=== PATIENT | female | born 1960 | race Caucasian/White ===

== ENCOUNTER 2022-03-18 07:59 | Day surgery (SDC) | payer OTHER ==
--- NOTE | 2022-03-17 08:50 | P.HPOR ---
History of Present Illness H&P Date: 03/17/22 Chief Complaint: Left small finger swan neck deformity Subjective: This is a 61 year old female that presents today for initial evaluation regarding a left small finger injury that occurred on 01/10/22 when she tripped over a mat a fell at home. She was found to have a left small finger PIPJ dorsal dislocation which was subsequently reduced and splinted. Since the injury she has noticed a deformity of the finger and inability to bend the digit. She sta kim it is not functional in it's current state. She has tried splinting and therapy but has not noticed much of a difference in her symptoms. She works at [employer]. She denies any paresthesias. Physical Examination: LUE: AIN/PIN/Radial/Ulnar/Median motor intact. Radial/Ulnar/Median SILT. 2+/4 Radial/Ulnar pulses palpated. 5/5 APB, 5/5 FDI. Negative Finkelsteins, negative CMC grind, negative Durkan's compression. Left small finger Bradley neck deformity. Able to correct to neutral extension. PIP passive flexion only to 10 degrees. Imaging: X-Rays of the left small finger demonstrate no acute fracture or dislocation. No arthritic changes at PIP joint present. Hyperextension deformity appreciated at PIP joint with DIP joint held in flexion. X-Rays taken in ED at time of injury on 01/10/22 demonstrate a left small finger dorsal PIP joint dislocation that was subsequently reduced. Impression: 1.) Left small finger swan neck deformity s/p left small finger dorsal PIP dislocation 2.) Left small finger PIP extension contracture Plan: Diagnosis and treatment options were discussed with the patient including splinting, which she has already tried, continued observation, and surgical options. Details of surgery which would include left small finger PIP joint volar plate advancement with central slip tenotomy were discussed and the patient wished to proceed with surgical intervention due to the finger not being functional anymore. Risks and benefits of surgery including bleeding, infection, damage to surrounding tissue, need for further surgery, stiffness, residual numbness were discussed and the patient wished to go forward with surgery. I anticipate 2 weeks off from her work, she may resume right handed work only at 2 weeks with likely all restrictions lifted at 6 weeks. -Davin Simpson DO Orthopedic Hand/Upper Extremity Surgeon Medications and Allergies Allergies Allergy/AdvReac Type Severity Reaction Status Date / Time Unable to Assess Allergy Verified 03/13/22 15:42 Physical Examination Osteopathic Statement: *. No significant issues noted on an osteopathic structural exam other than those noted in the History and Physical/Consult.
[2022-03-17 10:03] VITALS: BMI 36.3
[~2022-03-18 07:59] MED LIST: LACTATED RINGERS 1,000 ML IV SCH; ONDANSETRON 4 MG/2 ML VIAL IVP PRN; fentaNYL (PF) 50 MCG/ML 2 ML AMP IV PRN
[2022-03-18] MEDS ORDERED: LACTATED RINGERS 1,000 ML IV ONE (08:33)
[2022-03-18] MEDS ORDERED: KETAMINE 10 MG/ML 20 ML VIAL ONE (09:08)
[2022-03-18] MEDS ORDERED: PROPOFOL 10 MG/ML 20 ML VIAL IV ONE (09:08)
[2022-03-18] MEDS ORDERED: fentaNYL (PF) 50 MCG/ML 2 ML AMP ONE (09:08)
[2022-03-18] MEDS ORDERED: MIDAZOLAM 2 MG/2 ML VIAL ONE (09:08)
[2022-03-18] MEDS ORDERED: LIDOCAINE 1% INJ 10MG/ML (20 ML MDV) SQ ONE (09:15)
[2022-03-18] MEDS ORDERED: BUPIVACAINE (PF) 0.5% 30 ML VIAL SQ ONE (09:15)
[2022-03-18 10:48] VITALS: TEMP 98
[2022-03-18] MEDS ORDERED: HYDROcodone/APAP 5-325MG 1 EACH TAB PO ONE (12:04)
[2022-03-18 12:22] VITALS: RESP 14
[2022-03-18 12:37] VITALS: BP 138/82; PULSE 79
--- NOTE | 2022-03-18 18:10 | P.OP ---
Date of Procedure: 03/18/22 Preoperative Diagnosis: 1.) Left small finger post traumatic swan neck deformity. 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 Postoperative Diagnosis: 1.) Left small finger post traumatic swan neck deformity. 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 Procedure(s) Performed: 1.) Left small finger PIP joint contracture release with capsulotomy for contracture (20113) 2.) Left small finger extensor tenolysis, dorsum of finger (84036) 3.) Left small finger FDS tenodesis for PIP joint stabilization ([id number]) Anesthesia: MAC Surgeon: Davin Simpson Docking Pilot #1: Steven Boogie Estimated Blood Loss (ml): 5 Pathology: none sent Condition: stable Disposition: PACU Description of Procedure: This is a 61 year old female who sustained a left small finger dorsal PIP dislocation on 01/10/22 which was close reduced and splinted. She subsequently developed a fixed swan neck deformity in the following months after her injury. She presented to me several months after treatment with another surgeon and after having tried splinting and therapy with no relief and a persistent locked swan neck deformity. She presents today for swan neck deformity correction surgery after having failed conservative treatment. Risks and benefits of surgery were discussed with the patient including bleeding, damage to surrounding tissue, infection, need for further surgery, recurrence, stiffness, as well as risks of anesthesia including pulmonary embolism and even and the patient wished to proceed with surgical intervention. The patient was seen in the pre-operative area by myself. Consent and H&P were completed and updated. The correct extremity was marked in the pre-operative area by myself and all other questions were answered. Operative Narrative: The patient was brought to the operating room by the department of anesthesia. They remained on the portable stretcher and a rolling hand table was brought to the side of the operative extremity. Pre-operative time out was performed indicating the correct patient, procedure and laterality. All in the room agreed. Pre-operative antibiotics were given prior to skin incision. The patient was then drifted off to sleep by the department of anesthesia. Digital block was performed with 7cc's of 0.5% Lidocaine and 1% lidocaine in a 50:50 mixture. A nonsterile tourniquet was then applied to the operative extremity and the left upper extremity was then prepped and draped in normal sterile fashion. The operative extremity was the exsanguinated with an esmarch bandage and the tourniquet was inflated to 250mmHg. Attention was first given to PIP joint mobilization of the left small finger. Closed PIP joint manipulation was performed and a 40 degrees of flexion was now able to be obtained compared to -10 degrees previously. Longitudinal/curvilinear incision was made over the PIP joint dorsally. Blunt dissection through subcutaneous tissues was performed. The entire extensor mechanism was very scarred down to the dorsal IP joint capsule and the lateral bands were found to have migrated proximally. Tenolysis was performed to separate the proximal portion of the central slip that was scarred down and 15 blade scalpel was utilized to separate the longitudinal bands from their adhesions and the lateral bands were then mobilized volarly. Dorsal PIP joint capsule was then incised and capsulotomy was performed to aid in PIP flexion. The finger was then manipulated once more and 90 degrees of passive flexion was able to be obtained however hyperextension of the PIP joint was still present. Attention was then drawn to the volar aspect of the small finger. Shahnaz type incision was made with 15 blade scalpel overlying the PIP joint. Blunt dissection was taken down to unveil the A2, C1, A3, C2 and A4 pulleys. Retraction was utilized to protect the radial and ulnar neurovascular bundles. The flexor tendon sheath was entered by longitudinally incising the C1 and A3 pulleys taking care to preserve the A2/A4 pulleys. The volar plate appeared to be very scarred and thin and not viable for repair/advancement therefore decision was made to go forward with FDS tenodesis. The ulnar slip of the FDS tendon was retracted fully through the opening of the flexor tendon sheath then incised as proximally as possible leaving a free distally based tendon with 5cm of length. Next, a transverse incision was made in the mid-substance of the A2 heydi, ensuring that sufficient tissue is left in the distal portion of the A2 heydi to allow for a strong anchor. The FDS slip was then passed palmarward through the A2 heydi and sutured back to itself with 4-0 ethibond suture in figure of 8 fashion after appropriate tension was determined leaving the PIP join in 15-20 degrees of flexion. The C1 and A3 pulleys were then repaired with 4-0 monocryl suture. The finger was flexed and gently extended and smooth gliding of the flexor tendon was appreciated. The wound was then irrigated and skin closure was performed with 4-0 nylon suture. Sterile dressing with adaptic, bacitracin, 4x4s and a dorsal extension blocking splint was applied. Tourniquet was let down and the digit had immediate perfusion. The patient was then woken by the department of anesthesia and transferred to PACU in stable condition. Steven FOSTER was present for the case to assist in tendon tensioning and protection of vital neurovascular structures. Davin Simpson D.O. Orthopedic Hand/Upper Extremity Surgeon
== END 2022-03-18 13:04 | disposition home or self-care (01) ==
LOC: OR 07:59
PROVIDERS: ATTEND Orthopaedic Surgery Hand Surgery
DX: M20.032 Swan-neck deformity of left finger(s) (principal); M24.542 Contracture, left hand; S63.28 Dislocation of proximal interphalangeal joint of finger; X58.XXXS Exposure to other specified factors, sequela; J45.909 Unspecified asthma, uncomplicated; Z91.09 Other allergy status, other than to drugs and biological substances; Z79.899 Other long term (current) drug therapy; Z87.891 Personal history of nicotine dependence; Z80.9 Family history of malignant neoplasm, unspecified
CPT/HCPCS: 26525; 26445; 26471; J2250; J0690; J2405; J2001; J3010; J2704

== ENCOUNTER 2022-04-21 05:41 | Inpatient (IN) | payer OTHER ==
[2022-04-17 10:34] VITALS: BMI 36.4
[~2022-04-21 05:41] MED LIST changes: +ACETAMINOPHEN TAB 500 MG TAB PO PRN; +GABAPENTIN 300 MG CAP PO PRN; -LACTATED RINGERS 1,000 ML IV SCH; +MELOXICAM 7.5 MG TAB PO PRN; -ONDANSETRON 4 MG/2 ML VIAL IVP PRN; +TRANEXAMIC ACID IN NACL,ISO-OS 1,000 MG in SALINE 1 100ML.BAG IVPB PRN; -fentaNYL (PF) 50 MCG/ML 2 ML AMP IV PRN
[2022-04-21] MEDS ORDERED: DEXAMETHASONE SOD PHOSPHATE 4 MG/ML 1 ML VIAL IV ONE (05:46)
[2022-04-21] MEDS ORDERED: ONDANSETRON 4 MG/2 ML VIAL IVP ONE (05:46)
[2022-04-21] MEDS: LACTATED RINGERS 1,000 ML IV SCH ×2 (06:23→18:32)
--- NOTE | 2022-04-21 06:57 | P.HPOR ---
History of Present Illness H&P Date: 04/13/22 Chief Complaint: LE weakness, LBP, debility [facility] History and Physical Date of :[birth year] R14Age: 61 year Height: 5'8" Weight: 220 lbs BMI: 33.45 kg/m2 Occupation: [email or web address] VAS: 5 CHIEF COMPLAINT: Low back pain DOI: None DOS: Prior lumbar fusions in 2006, 2017 and 2018. HISTORY: Xrays x-rays and CT myelogram completed Trauma or injury No Work-Related No Pain description aching, sharp. Location diffuse Activity Modification Hand Dominance right TREATMENTS COMPLETED: 6 weeks of PT completed? Month and Year of last PT date? 2020 Yes How many sessions? 12 Did it help? No Physician directed home exercise completed? yes , without relief of her symptoms. Medications yes List: TramadoL, Flexeril, Naproxen without relief of her symptoms. Has trialed Mobic and Lyrica previously without relief but is no longer taking. Alternative interventions Chiropractic: No Massage therapy: No R.I.C.E: yes , daily without relief. Brace: No Injections No RFA: No SUBJECTIVE: Ms. Bui returns to the office for a pre-operative recheck of their low back pain and planned [id number] decompression and fusion. Since the time of the last appointment the patient reports no significant changes to her symptom, continuing to complain of severe low back pain radiating into the bilateral lower extremities. Overall the patient has seen a progressive increase in symptoms since their onset. Ms. Bui symptoms are exacerbated with most daily activities, due to this they notes that it is increasingly difficult for Ms. Bui to complete many of their daily tasks. Patient is having severe sleep disturbances as well due to their ongoing pain and associated symptoms. Regarding treatments, the patient has previously trialed all abovmentiioned treatment modalities without any relief. Patient denies trialing any other modalities at this time. Otherwise the patient denies any f/c/sob/cp, no incision concerns, no bladder or bowel retention/incontinence, no perineal numbness/tingling, and ambulates independently. HISTORY: Patient last presented on 02/23/2022 for follow-up on her back pain and her CT myelogram. since her last visit she has continued to have issues ambulating as well as with back pain and leg pain. She complains mostly of leg discomfort leg numbness tingling as well as pain. She can only walk very short distance before she has to take a break due to cramping in her lower extremities. She denies any fevers chills shortness of breath or chest patient has a new symptoms of bowel or bladder issue she denies any perineal numbness or tingling. She states continued issues with activities of daily living secondary to her debility and her back issues. Previously Ms. Bui presented to the office on 11/27/2021 for an evaluation of her low back. She reports symptoms ongoing for many years that have progressively worsened over the last 3 months with no known injury or trauma to indicate an exact onset. With this she does report that she has had 3 prior lumbar surgeries in 2006, 2018, and. She notes that she find temporary relief of her symptoms but her pain has always returned following the surgeries. Regarding her symptoms, the patient reports pain radiating across the low back into the bilateral lower extremities. With the pain she does also report numbness and tingling down the lower extremities into the bilateral feet as well. Overall her symptoms are constant but exacerbated with prolonged standing and ambulation which is increasingly making completion of her daily tasks difficult. Additionally she notes frequent sleep disturbances due to her pain as well. As for treatments, the patient reports that since her surgery in 2018 she did trial a round of PT as well as greater than 3 months of a physician directed HEP both without any relief. Additionally she notes that she is currently taking TramadoL, Flexeril, and NAproxen all without relief of her symptoms. Patient has trialed Mobic and Lyrica previously without any relief of her symptoms. Otherwise she denies any bladder or bowel retention/incontinence, no perineal numbness/tingling, and ambulates independently. The patients' past social, medical, family, surgical history, as well as review of systems, have been reviewed. Please refer to the Neurosurgery History and Physical form that has been scanned in to our electronic medical record system. 16 points review of systems completed and as stated in HPI, all other systems reviewed are negative. Social History: Reviewed, see appropriate section of the chart for details. P3 Social History: Smoking: none P3 Alcohol: currently drinks alcohol P3 Family History: Reviewed, see appropriate section of the chart for details. P2 Past Medical History: Reviewed, see appropriate section of the chart for details. P1 Current Medications: Rx: cyclobenzaprine 5 mg tablet Ref: 0 Rx: naproxen 500 mg tablet Ref: 0 Rx: traMADol 50 mg tablet Ref: 0 PHYSICAL EXAMINATION:exam repeated changes noted General: Awake, alert, appropriate for age, in no acute distress. HEENT: No unusual neck masses around region of lateral neck triangle, thyroid, supraclavicular groove Heart: Regular rate and rhythm, normal S1, S2 and no murmur/gallop. Lungs: Clear to auscultation bilaterally with no use of accessory muscles. Extremities: Skin warm and dry without acute lesions, coloration, temperature, skin intact, no tenderness or erythema Integument: Hairy patches: ABSENT Dorsal skin dimples: ABSENT Cafe au lait spots: ABSENT Palpation: Please see Pain drawing on Intake sheet for further detail. Midline spinal tenderness: No E6 Cervical Tenderness: No E6 Paralumbar tenderness: No E6 Parathoracic tenderness: No E6 Buttocks tenderness: No E6 Sacroilliac Tenderness: No POSTURAL and MUSCULO-SKELETAL EVALUATION: Coronal Balance: NEUTRAL Recumbent testing: Patient is able to lay flat on back Sagittal Balance: NEUTRAL Shoulder Profile: LEVEL Pelvic Girdle: LEVEL Neck ROM: UNRESTRICTED Lumbar ROM: RESTRICTED Shoulder ROM: Symmetrical Hip ROM: Symmetrical Knee ROM: Symmetrical Hands: Normal appearance, symmetrical Feet: Normal appearance, Symmetrical VASCULAR STATUS : LEFT RIGHT Wrist Pulses INTACT INTACT Pedal Pulses (Dors. pedis & post.tibialis) INTACT INTACT Color NORMAL NORMAL Edema Absent Absent NEUROLOGIC EXAMINATION: Mental Status:Awake and alert, fully oriented, with normal attention, concentration and memory, and fluent, appropriate speech. Cranial Nerves: I: Olfactory not tested. II: Visual acuity normal, no visual field deficit noted with confrontation. III,IV: Normal pupillary reflexes & intact extraocular movements without nystagmus. V,: Intact symmetrical facial sensation. VII: Intact symmetrical facial motor movement VIII: Hearing intact. IX,X: Intact gag, swallow, & normal voice. XI: Sternocleidomastoid, trapezius function intact. XII: Tongue midline with normal movements. L'hermitte's Sign: Negative / absent Spurling'Sign: Absent bilaterally. Cubital percussion test: Absent bilaterally. Hannah-Tinel sign - Carpal region: Absent bilaterally. Straight Leg Raising: Absent bilaterally. Crossed straight leg raise: negative O8 MOTOR EXAM (0-5/5, N/T) UPPER EXTREMITY Shoulder Abduction Biceps Triceps Wrist Extension Hand [employer] Super[employer] Right 5/5 5/5 5/5 5/5 5/5 5/5 Left 5/5 5/5 5/5 5/5 5/5 5/5 LOWER EXTREMITY Hip Flexion Knee Extension Knee Flexion DF PF EHL FHL Right 4/5 4/5 4/5 4/5 4/5 4/5 5/5 Left 4/5 4/5 4/5 4/5 4/5 4/5 5/5 REFLEXES(0-4/2, NT)Upper ExtremityLower Extremity Right 2 2 Left 2 2 Pathological Reflexes RIGHT LEFT Hannah's Absent Absent Clonus Absent Absent Babinski Absent Absent # Indicates mechanical impairment Muscle appearance: Symmetrical, without signs of atrophy or dystrophy. Sensory system (0-4, N/T) Test type RU JAHAIRA RL LL Joint-Position 2 2 2 2 Vibration 2 2 2 2 Pain & LT sense 2 2 2 2 Dermatomal Deficit: None None L3 4L5-S1 L1 toL5-S1 Gait and Functional Evaluation: Ambulatory aids: with assistance of a cane Romberg's test: Intact bilaterally Toe heel walk / heel-toe walk intact while maintaining satisfactory balance? No Squatting/straightening w/o assistance to a min of 60 degree knee flexion? No Single leg stance: intact Trendelenburg sign negative bilaterally Hand and finger dexterity intact bilaterally? yes Disdiadochokinesis examination negative bilaterally? yes RADIOGRAPHIC STUDIES: XRay taken on 11/27/21 of Lumbar Spine and Pelvis: images reviewed demonstrate postsurgical changes from L2 to L5 with multiple different constructs. From L2 to L4 there is pedicle screw wayne construct with interbody fusion at L3-L4 which appears to be holding its position. At L4-L5 there is interbody fusion however rods do not extend to the L5 screws there are screws in L5 which appeared to be left in place from previous surgery likely due to their appearance as older in nature and the hardware as not compatible with new or hardware. There is proximal junctional failure at L1-L2 with severe spondylosis as well as collapse and segmental kyphosis. There is distal junctional failure at L5-S1 with severe spondylosis segmental kyphosis and collapse. There is severe facet arthrosis at these levels as well. Global lumbar lordosis is fairly well maintained coronal balance shows minor levoscoliosis around these levels no fracture or dislocation is noted otherwise. AP pelvis demonstrates congruent level pelvis no fracture CT myelogram from [place]: this is reviewed with the pt and demonstrates severe ASD at L1-3 and L5-S1. There is disc dessication as well as height loss. There is severe retrolisthesis with abnormal lordosis at L2-3 and L3-4 likely secondary to the ASD. There is severe stenosis L1-2, L2-3 and L3,4 as well as moderate central stenosis L5-S1. There is flattening of the normal lodosis due to these findings as well. LL is around 25 with PI around 56 mismatch. No fractures noted. No lesions noted. Severe spondylosis through these regions. REasonable fusion without hardware fialure from previous surgeries. IMPRESSION: It was my pleasure to have seen and examined April. I reviewed the patient's clinical syndrome, physical findings, and imaging studies during the appointment today. It is my impression that the patient has a diagnosis of. 1. 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 Neurogenic claudication 3. LE weakness 4. s/p multiple spine surgeries. I outlined the natural course history without intervention and various interventional options. PLAN: Based on my findings I suggest the following course of action: -Due to the nature of her sx as well as her severe imaging findings I do recommend surgical intervention in the form of a revision decompression and fusion from Thoracic 10 to pelvis. This is due to the levels of issues that she has being at a transitional zone, the severe stenosis she has as well as the ASD above and below her old fusions. -We discussed different options and at this point she cannot perform her ADLs appropriately and conservative measures have failed to improve her sx including PT, HEP, medications, injections. She is ready for surgery. Spine Surgery Risk Review Ms. Bui is presenting for evaluation of low back pain. It was my pleasure to have seen and examined Ms. Bui. In our visit today we have had a chance to go over subjective complaints, physical examination findings and treatments including the natural course history without intervention and various interventional options. The patients imaging demonstrates: XRay taken on 11/27/21 of Lumbar Spine and Pelvis: images reviewed demonstrate postsurgical changes from L2 to L5 with multiple different constructs. From L2 to L4 there is pedicle screw wayne construct with interbody fusion at L3-L4 which appears to be holding its position. At L4-L5 there is interbody fusion however rods do not extend to the L5 screws there are screws in L5 which appeared to be left in place from previous surgery likely due to their appearance as older in nature and the hardware as not compatible with new or hardware. There is proximal junctional failure at L1-L2 with severe spondylosis as well as collapse and segmental kyphosis. There is distal junctional failure at L5-S1 with severe spondylosis segmental kyphosis and collapse. There is severe facet arthrosis at these levels as well. Global lumbar lordosis is fairly well maintained coronal balance shows minor levoscoliosis around these levels no fracture or dislocation is noted otherwise. AP pelvis demonstrates congruent level pelvis no fracture CT myelogram from [place]: this is reviewed with the pt and demonstrates severe ASD at L1-3 and L5-S1. There is disc dessication as well as height loss. There is severe retrolisthesis with abnormal lordosis at L2-3 and L3-4 likely secondary to the ASD. There is severe stenosis L1-2, L2-3 and L3,4 as well as moderate central stenosis L5-S1. There is flattening of the normal lodosis due to these findings as well. LL is around 25 with PI around 56 mismatch. No fractures noted. No lesions noted. Severe spondylosis through these regions. REasonable fusion without hardware fialure from previous surgeries. On physical exam, Ms. Bui demonstrates signifcantly restricted lumbar range of motion with bilateral lower extremity radiculopathy and weakness. Furthermore the patient does also demonstrate bilateral L3-L4, L5-S1 paresthesias. I have explained to the patient that as their condition progresses it will cause further neurological deficits and eventual paralysis. Based on the patients imaging, physical exam, and the rapid progression and disabling nature of their symptoms, at this time I recommend surgery in the form or a: Y45-Dobenh Decompression and Fusion. I discussed the risk and benefits of this procedure at length with Ms. Bui. The patient agreed to considered pursuing the procedure abovementioned. Prior to surgery, she should follow up with her PCP (Cardio, ID, IM etc) for clearance. Questions were invited and answered, and the patient wishes to proceed as outlined below. Currently, I am recommendin.[id number] Decompression and Fusion 2.Follow up with PCP for surgical clearance 3.Review of surgical risks and benefits as well as an educational packet on the proposed surgical procedure. Risks: All surgical procedures come with inherent risks, including those related to positioning, anesthesia, intraoperative findings, and postoperative complications. It is important to understand that surgery does not come with any guarantee of a successful outcome as complications and adverse events are always possible. The patient was given a handout in office today discussing the surgical procedure and risks associated with the intervention, both of which were discussed with the patient. These risks include but are not limited to the following: * Experiencing same, different or even worse symptoms in back, neck, arms, or legs compared to before surgery. Requiring further surgery or other forms of treatment presently or at some time in the future at same or other levels of the intended spine surgery. On an extreme but fortunately relatively rare basis severe complication such as blindness, stroke, heart attack, temporary and/or permanent nerve injury, paralysis, coma, or may occur, sometimes without known explanation. Surgical complications may include but are not limited to risk of infection, fluid accumulation in the surgical dissection site, including a seroma or hematoma, that requires additional surgery, wound drainage, bleeding, new numbness or weakness, vision changes/loss, spinal fluid leakage, non-healing and/or infected incision, headaches, difficulty or inability to swallow, hoarseness, hemopneumothorax, pneumothorax, impotence, retrograde ejaculation, vaginal dryness; injury to nerves, spinal cord, blood vessels, lymphatics or other vital organs (i.e., bowel injury, injury to the great vessels); heterotopic bone formation; complications related to the hardware such as screws, rods, cages including misplaced hardware, device failure, instrumentation at the wrong spine level, hardware fracture/breakage, or hardware loosening; vertebral failure of the spinal column above or below the newly placed hardware; retained surgical instrumentations or devices and the need for further surgery. * Medical risks of the planned spine surgery include but are not limited to generalized Infections to the whole body or local areas outside of the surgical site (sepsis), heart attack, bleeding, anaphylaxis, meningitis, seizure, epilepsy, hearing loss, burn casillas, laceration of the head or other areas of the body, bruising, hypersensitivity of the skin, bladder over distension; allergic reaction; shoulder injury related to positioning; fat, blood and air clots to other areas of the body like heart, lungs, brain; failu re of internal organs such as lungs, kidneys, liver and excessive bleeding. If blood transfusions are necessary, note that transfusions may cause intolerance reactions such as anaphylaxis or other complex reactions. Despite best efforts, the results of spine surgery might not heal in terms of bone, soft tissues such as skin, fascia, ligaments, and joints. Additionally, in order to achieve best possible results, spine surgery may be carried out beyond the initially planned levels and involve decompression, fusion including insertion of hardware at levels other than the original intended area of surgical interest change some portions of the procedure in order to ensure the best possible outcomes. With spine surgery and spinal fusion, there are different off label uses of instrumentation (devices, implants and hardware) as well as biological substances (bone morphogenic proteins, demineralized bone matrix) as well as using extra bone from allograft sources (i.e. cadaver bone) or autograft (iliac crest bone, ribs, or the spine itself). The patient has been given information about these practices and their inherent risks and benefits. [facility] is an educational center that serves as a training facility for neurosurgical and orthopedic [employer] and Nursing students. Physician assistants are medically trained surgical providers who function in the outpatient, inpatient, and operating room setting under the direct supervision of the attending surgeon. [facility] has multiple operating rooms with single and overlapping rooms running daily. They currently function under the required guidelines as produced by the [facility] Finance Committee with regards to the overlapping rooms and will continue to comply with changes to this policy as they occur. The requirements include and are complied with as follows: (1) the critical portions of the overlapping rooms will not occur at the same time, (2) the attending physician will be physically present during the critical portions of the procedure and immediately available during the entire case, and (3) a back-up attending is designated should the primary attending not be immediately available. The patient has had a chance to review all the listed information, has been given print outs detailing this information, and has had all his/her questions answered to their satisfaction. It was my pleasure to have seen and examined Ms. Bui. In our visit today we have had a chance to go over my understanding of our patient's current condition, the natural course history without intervention and various interv entional options. Questions were invited and answered, and the patient wishes to proceed as outlined above. I have seen and examined the patient for 25 minutes and we have spent more than 50% of the time in repeat and detailed counseling about the patient's condition, its natural course history with out and as much as can be predicted with surgery and re-review of various surgical treatment options. In conclusion, Ms. Bui requested we proceed with the above suggested surgery and are willing to accept risks and limitations of the suggested surgery as nature of the disease process and our best attempts at treatment for the condition. Thank you again for allowing us to be part of your patient's care. Please don't hesitate to contact me if you have any further questions. Signed and authenticated by: Bertin [facility]im[facility] [address] [address] Past Medical History Past Medical History: Asthma, GERD/Reflux, Osteoarthritis (OA) Additional Past Medical History / Comment(s): childhood asthma, hx pancreatitis, sphinal stenosis, History of Any Multi-Drug Resistant Organisms: None Reported Past Surgical History: Cholecystectomy, Hysterectomy, Joint Replacement, Orthopedic Surgery, Tonsillectomy Additional Past Surgical History / Comment(s): left knee replacement, left knee arthroscopy, Past Anesthesia/Blood Transfusion Reactions: No Reported Reaction Smoking Status: Former smoker - Past Family History Father Family Medical History: Cancer Additional Family Medical History / Comment(s): NOT 100% SURE IF DAD HAD CANCER Sister(s) Family Medical History: Cancer Mother Family Medical History: Pulmonary Embolus Medications and Allergies Home Medications Medication Instructions Recorded Confirmed Type Cyclobenzaprine [Flexeril] 5 mg PO TID 03/17/22 04/21/22 History Naproxen Sodium [Naproxen Sodium 500 mg PO BID PRN 03/17/22 04/21/22 History ER] traMADol HCL 50 mg PO BID PRN 03/17/22 04/21/22 History Omeprazole Magnesium [PriLOSEC OTC] 20 mg PO DAILY PRN 04/17/22 04/21/22 History HYDROcodone/APAP 5-325MG [[place] 5 PO PRN 04/21/22 History 5-325] Allergies Allergy/AdvReac Type Severity Reaction Status Date / Time mold Allergy sneezing Verified 04/21/22 06:14 Physical Examination Osteopathic Statement: *. No significant issues noted on an osteopathic structural exam other than those noted in the History and Physical/Consult.
--- NOTE | 2022-04-21 06:58 | P.PN ---
Progress Note - Text Progress Note Date: 04/21/22 History and Physical UPDATE I have seen and examined the patient and reviewed the history and physical. There appear to be no significant changes in the patient's current medical status as outlined in the current History and Physical.
[2022-04-21] MEDS ORDERED: fentaNYL (PF) 50 MCG/ML 2 ML AMP ONE (07:00)
[2022-04-21] MEDS ORDERED: PROPOFOL 10 MG/ML 20 ML VIAL IV ONE (07:00)
[2022-04-21] MEDS ORDERED: ePHEDrine 50 MG/ML 1 ML VIAL ONE (07:00)
[2022-04-21] MEDS ORDERED: TRANEXAMIC ACID IN NACL,ISO-OS 1,000 MG/100 ML BAG ONE (07:00)
[2022-04-21] MEDS ORDERED: HYDROmorphone (PF) 1 MG/ML ONE (07:00)
[2022-04-21] MEDS ORDERED: SUCCINYLCHOLINE CHLORIDE 200 MG/10 ML VIAL IV ONE (07:00)
[2022-04-21] MEDS ORDERED: KETAMINE 10 MG/ML 20 ML VIAL ONE (07:00)
[2022-04-21] MEDS ORDERED: ALBUMIN HUMAN 5% (25gm) 500 ML VIAL IVPB ONE (07:00)
[2022-04-21] MEDS ORDERED: PHENYLEPHRINE-0.9% NACL SYG 1,000 MCG/10 ML SYRINGE ONE (07:00)
[2022-04-21] MEDS ORDERED: ROCURONIUM 10 MG/ML (5 ML VIAL) IV ONE (07:00)
[2022-04-21] MEDS ORDERED: ceFAZolin 1,000 MG VIAL ONE (07:00)
[2022-04-21] MEDS ORDERED: LIDOCAINE 2% INJ 20 MG/ML (2 ML VIAL) ONE (07:00)
[2022-04-21] MEDS ORDERED: SODIUM CHLORIDE 0.9% 100 ML BAG ONE (07:00)
[2022-04-21] MEDS ORDERED: MIDAZOLAM 2 MG/2 ML VIAL IVP ONE (07:03)
--- NOTE | 2022-04-21 08:35 | P.ANPRN ---
Procedure Note - Anesthesia - Invasive Line Right Central Line Time Out Performed: Yes ([id number]) Date of Procedure: 04/21/22 Time of Procedure: 07:09 Location of Patient: PreOp Preparation: Sterile Prep, Sterile Dressing Ultrasound Used: Yes Purpose - Visualization and Identification of Vasculature: Yes Needle Guage: 18g angio Image Stored and Saved: Yes Narrative: Central line placement per sterile protocol utilized. +local +angio +cvp +jwire +uneventful dilation and introduction right IJ TLC
[2022-04-21] MEDS ORDERED: THROMBIN (BOVINE) 5,000 UNIT VIAL TOPICAL ONE (08:54)
[2022-04-21] MEDS ORDERED: GELATIN SPONGE,ABSORB (LARGE) 1 EACH SPONGE TOPICAL ONE (08:54)
[2022-04-21] MEDS ORDERED: TRANEXAMIC ACID IN NACL,ISO-OS 1,000 MG in SALINE 1 100ML.BAG IVPB ONE (09:15)
[2022-04-21] MEDS ORDERED: LACTATED RINGERS 1,000 ML IV ONE ×6 (09:29→15:51)
[2022-04-21] MEDS ORDERED: CYCLOBENZAPRINE 5 MG TAB PO PRN (14:40)
[2022-04-21] MEDS ORDERED: HYDROcodone/APAP 5-325MG 1 EACH TAB PO PRN (14:40)
[2022-04-21] MEDS ORDERED: SENNOSIDES-DOCUSATE SODIUM 1 EACH TAB PO PRN (14:40)
[2022-04-21] MEDS ORDERED: VANCOMYCIN 1,000 MG VIAL MISCELLANE ONE (15:00)
[2022-04-21] MEDS: HYDROmorphone 0.5 MG/0.5 ML SYRINGE IVP PRN ×3 (16:50→18:37)
--- NOTE | 2022-04-21 16:55 | XR ---
EXAMINATION TYPE: XR chest 1V confirm line [facility] DATE OF EXAM: 04/21/2022 COMPARISON: NONE HISTORY: Line placed TECHNIQUE: Single view FINDINGS: Heart and mediastinum are within normal limits. There is right jugular catheter with tip in the superior vena cava. There is thoracolumbar posterior fusion surgery. There are skin eneida. Mattie phragm is normal. No pneumothorax. IMPRESSION: No active cardiopulmonary disease.
--- NOTE | 2022-04-21 17:10 | XR ---
EXAMINATION TYPE: XR lumbar spine 2 or 3V, FL guidance operating room DATE OF EXAM: 04/21/2022 Comparison: None Clinical History: 61-year-old female [id number] Revision Findings: Multiple intraoperative fluoroscopic images during revision of fusion spanning T10 through the pelvis . FLUOROSCOPY Fluoroscopy time of 1 minute 40 seconds was used during [id number] revision. Multiple image/s docume nt/s the procedure. Impression: Intraoperative fluoroscopy as above.
[2022-04-21 18:12] LABS: Glucose,Whole Blood 199 mg/dL (70-110)
[2022-04-21] MEDS: ACETAMINOPHEN TAB 325 MG TAB PO SCH ×2 (20:19→23:50)
[2022-04-21] MEDS: HYDROmorphone 1 MG/ML 1 ML SYRINGE IVP PRN (21:05)
[2022-04-22] MEDS: HYDROmorphone 1 MG/ML 1 ML SYRINGE IVP PRN ×2 (02:23→21:45)
[2022-04-22] MEDS: ACETAMINOPHEN TAB 325 MG TAB PO SCH ×3 (04:32→18:27)
[2022-04-22 04:44] LABS: African American GFR (CKD) >90 (>60 ml/min/1.73 sqM); Anion Gap 9 mmol/L; Blood Urea Nitrogen 14 mg/dL (7-17); Calcium 8.4 mg/dL (8.4-10.2); Carbon Dioxide 25 mmol/L (22-30); Chloride 101 mmol/L (98-107); Glucose 178 mg/dL (74-99); Non-African American GFR(CKD) >90 (>60 ml/min/1.73 sqM); Potassium 4.1 mmol/L (3.5-5.1); Sodium 135 mmol/L (137-145)
[2022-04-22 04:51] LABS: Basophils % (A) 0 %; Eosinophils % (A) 0 %; HCT 33.2 % (34.0-46.0); HGB 10.5 gm/dL (11.4-16.0); Hypochromasia Slight; Lymphocytes # (A) 0.4 k/uL (1.0-4.8); Lymphocytes % (A) 4 %; MCH 28.5 pg (25.0-35.0); MCHC 31.7 g/dL (31.0-37.0); Mean Platelet Volume 8.3; Monocytes # (A) 0.6 k/uL (0-1.0); Monocytes % (A) 6 %; Neutrophils # (A) 8.9 k/uL (1.3-7.7); Neutrophils % (A) 89 %; Platelet Count 249 k/uL (150-450); RBC 3.69 m/uL (3.80-5.40); RDW 13.8 % (11.5-15.5); WBC 10.1 k/uL (3.8-10.6)
[2022-04-22] MEDS: HYDROmorphone 0.5 MG/0.5 ML SYRINGE IVP PRN ×2 (06:02→08:57)
[2022-04-22] MEDS ORDERED: PANTOPRAZOLE 40 MG TABLET PO PRN (08:46)
--- NOTE | 2022-04-22 10:53 | P.CNPUL ---
History of Present Illness Consult date: 04/22/22 Chief complaint: Lumbar spine surgery, intensive care unit management History of present illness: This is a 61-year-old female patient was brought into the intensive care unit for monitoring of the patient extensive spine surgery involving the thoracic spine. The patient had decompression multilevel with fusion. The patient was extubated in the operating room and the patient was brought in for further monitoring. The patient is currently awake and alert and following commands. Moving all 4 extremities. No neurological deficits. He is slightly tachycardic and he is in sinus tachycardia with a heart rate of 115. Pain is under adequate control. Is on 2 L of Oxymizer nasal cannula with a pulse ox of 96%. Blood pressure is stable. Hemodynamically stable. The night was uneventful. Blood work from today shows a white cell count of 10.1 with hemoglobin 10.5 and a platelet count of 49. Sodium is 135. BNP is at 40 with a creatinine of 0.65 and a calcium level is at 8.4. The patient otherwise is using the incentive spirometer. The chest x-ray was on postop yesterday and showed no acute abnormalities. Review of Systems Constitutional: Denies chills, Denies fever Eyes: denies as per HPI, denies blurred vision, denies bulging eye, denies decreased vision, denies diplopia, denies discharge, denies dry eye, denies irritation, denies itching, denies pain, denies photophobia, denies loss of peripheral vision, denies loss of vision, denies tunnel vision/blind spots Ears: deny: decreased hearing, ear discharge, earache, tinnitus Ears, nose, mouth and throat: Reports as per HPI Breasts: absent: as per HPI, change in shape, gynecomastia, masses, nipple discharge, pain, skin changes, swelling Cardiovascular: Reports as per HPI Respiratory: Reports as per HPI Gastrointestinal: Reports as per HPI Genitourinary: Reports as per HPI Menstruation: Reports as per HPI Musculoskeletal: Reports low back pain Musculoskeletal: absent: ankle pain, ankle stiffness, ankle swelling, as per HPI, elbow pain, elbow stiffness, elbow swelling, foot pain, foot stiffness, foot swelling, hand pain, hand stiffness, hand swelling, hip pain, hip stiffness, hip swelling, knee pain, knee stiffness, knee swelling, shoulder pain , shoulder stiffness, shoulder swelling, wrist pain, wrist stiffness, wrist swelling Integumentary: Reports as per HPI Neurological: Reports as per HPI Psychiatric: Reports as per HPI Endocrine: Reports as per HPI Hematologic/Lymphatic: Reports as per HPI Allergic/Immunologic: Reports as per HPI Past Medical History Past Medical History: Asthma, GERD/Reflux, Osteoarthritis (OA) Additional Past Medical History / Comment(s): childhood asthma, hx pancreatitis, spinal stenosis History of Any Multi-Drug Resistant Organisms: None Reported Past Surgical History: Cholecystectomy, Hysterectomy, Joint Replacement, Orthopedic Surgery, Tonsillectomy Additional Past Surgical History / Comment(s): left knee replacement, left knee arthroscopy, Past Anesthesia/Blood Transfusion Reactions: No Reported Reaction Smoking Status: Former smoker - Past Family History Father Family Medical History: Cancer Additional Family Medical History / Comment(s): NOT 100% SURE IF DAD HAD CANCER Sister(s) Family Medical History: Cancer Mother Family Medical History: Pulmonary Embolus Medications and Allergies Home Medications Medication Instructions Recorded Confirmed Type Cyclobenzaprine [Flexeril] 5 mg PO TID 03/17/22 04/21/22 History Naproxen Sodium [Naproxen Sodium 500 mg PO BID PRN 03/17/22 04/21/22 History ER] traMADol HCL 50 mg PO BID PRN 03/17/22 04/21/22 History Omeprazole Magnesium [PriLOSEC OTC] 20 mg PO DAILY PRN 04/17/22 04/21/22 History HYDROcodone/APAP 5-325MG [[place] 5 PO PRN 04/21/22 History 5-325] Allergies Allergy/AdvReac Type Severity Reaction Status Date / Time mold Allergy sneezing Verified 04/21/22 06:14 Physical Exam Vitals: Vital Signs Temp Pulse Pulse Resp BP BP Pulse Ox 04/22/22 10:00 116 H 13 145/59 96 04/22/22 09:00 120 H 11 L 145/59 95 04/22/22 08:37 99 04/22/22 08:00 98 F 113 H 12 165/86 100 04/22/22 07:00 116 H 12 163/87 99 04/22/22 06:00 121 H 16 153/83 99 04/22/22 05:00 110 H 12 149/83 100 04/22/22 04:00 99.5 F 115 H 14 134/73 100 04/22/22 03:00 116 H 12 144/72 97 04/22/22 02:00 110 H 16 145/72 100 04/22/22 01:00 105 H 20 143/76 100 04/22/22 00:00 98.5 F 108 H 20 137/73 100 04/21/22 23:00 111 H 16 138/71 99 04/21/22 22:00 113 H 16 169/82 99 04/21/22 21:14 100 04/21/22 21:00 97 16 159/93 100 04/21/22 20:00 97.8 F 100 12 159/75 100 04/21/22 19:00 97 13 157/77 99 04/21/22 18:08 86 15 99 04/21/22 17:40 85 16 143/63 04/21/22 17:23 89 16 139/63 99 04/21/22 17:08 85 16 147/65 100 04/21/22 16:53 88 16 150/65 100 04/21/22 16:38 79 18 150/73 100 04/21/22 16:23 78 18 144/78 100 04/21/22 16:08 97.0 F L 86 20 150/70 100 Intake and Output 04/21/22 04/22/22 04/22/22 22:59 06:59 14:59 Intake Total 360 210 60 Output Total 2230 560 115 Balance -1870 -350 -55 Intake: IV 300 Intake, IV Titration 60 210 60 Amount Lactated Ringers 1,000 ml 40 @ 0 mls/hr IV .[facility] Rx#:[id number] Lactated Ringers 1,000 ml 60 160 20 @ 20 mls/hr IV .Q24H [facility] Rx#:[id number] ceFAZolin 2 gm In Sodium 50 Chloride 0.9% 50 ml @ 100 mls/hr IVPB Q8HR [facility] Rx# :[id number] Output: Drainage 90 210 Right Back 60 110 Right Lower Back 30 100 Urine 675 350 115 Estimated Blood Loss 1465 Other: Voiding Method Indwelling Catheter Indwelling Catheter Weight 111.6 kg ABP, PAP, CO, CI - Last 8 Hours Arterial Blood Pressure 147/71 Arterial Blood Pressure 120/72 Arterial Blood Pressure 147/67 The patient appeared well nourished and normally developed. Vital signs as documented. Head exam is unremarkable. No scleral icterus or corneal arcus noted. Neck is without jugular venous distension, thyromegaly, or carotid bruits. Carotid upstrokes are brisk bilaterally. Lungs are clear to auscultation and percussion. Cardiac exam reveals the PMI to be normally sized and situated. Rhythm is regular. First and second heart sounds normal. No murmurs, rubs or gallops. The patient has slightly tachycardic and the patient is having some sinus tachycardia. Abdominal exam reveals normal bowel sounds, no masses, no organomegaly and no aortic enlargement. Extremities are nonedematous and both femoral and pedal pulses are normal.Examination of the skin revealed no evidence of significant rashes, suspicious appearing nevi or other concerning lesions.Neurologically, the patient is awake and alert and the patient does not have any focal neurological deficit. Cranial nerves are essentially intact. The patient will go for eczema visible limitation. Surgical site over the left spinal areas dry clean and intact. The patient has DEANA drains were spine surgical one side and also thin serosanguineous Results - Laboratory Findings CBC and BMP: 04/22/22 03:54 04/22/22 03:54 Abnormal lab findings: Abnormal Labs 04/21/22 04/22/22 04/22/22 18:10 03:54 03:54 RBC 3.69 L Hgb 10.5 L Hct 33.2 L Neutrophils # 8.9 H Lymphocytes # 0.4 L Sodium 135 L Glucose 178 H POC Glucose (mg/dL) 199 H - Diagnostic Findings Chest x-ray: image reviewed Assessment and Plan Plan: Lumbar decompression and fusion, multilevel involving the T10 spine and the patient also had a pelvic revision. The patient's postoperative day #1. Hemodynamically stable and neurologically intact at this point in time. Back pain secondary to above, receiving a combination of tramadol and Dilaudid for pain control Sinus tachycardia Bronchial asthma, mild intermittent in nature, not using any form of maintenance medications Remote history of pancreatitis Multiple back surgeries and other orthopedic surgeries as stated in the HPI plan Plan Continue using incentive spirometer IVF @ 100 cc/hr, give the patient needs of normal saline bolus and start maintenance following that. She is quite dry and she is having some underlying sinus tachycardia Pain control with Dilaudid and tramadol orally Increase mobility as tolerated Neurologically intact and spine surgeries on the case Chest x-ray is showing stable findings and the patient has a triple lumen cath in the right IJ Compression devices to lower extremities for DVT prophylaxis Related artery catheter can be removed Consider removing this patient to a medical surgical floor.
--- NOTE | 2022-04-22 12:11 | P.PN ---
Subjective Progress Note Date: 04/22/22 Principal diagnosis: Status post revision [id number] decompression with posterior lateral fusion Patient was evaluated today, she is resting in her hospital bed. She is currently in the ICU. She was extubated after surgery and has done very well. She does complain of some generalized back pain. She complains more of stiffness in her lower extremities from being in bed. Urinary catheter is currently in place. Her surgical drains are in place with moderate amount of output. She is slightly tachycardic, remaining vitals and labs are stable. She has not been out of bed with therapy at this time. Currently denies any headaches, lightheadedness, chest pain or shortness of breath Objective - Vital Signs Vital signs: Vital Signs Temp 98 F 04/22/22 08:00 Pulse 110 H 04/22/22 11:00 Resp 9 L 04/22/22 11:00 BP 153/83 04/22/22 11:00 Pulse Ox 97 04/22/22 11:00 FiO2 Intake & Output 04/21/22 04/22/22 04/22/22 18:59 06:59 18:59 Intake Total 2950 270 100 Output Total 1915 875 205 Balance 1035 -605 -105 Weight 111.6 kg Intake: IV 2950 Intake, IV Titration 270 100 Amount Lactated Ringers 1,000 ml 80 @ 0 mls/hr IV .[facility] Rx#:[id number] Lactated Ringers 1,000 ml 220 20 @ 100 mls/hr IV .Q10H [facility] Rx#:[id number] ceFAZolin 2 gm In Sodium 50 Chloride 0.9% 50 ml @ 100 mls/hr IVPB Q8HR [facility] Rx# :[id number] Output: Drainage 300 Right Back 170 Right Lower Back 130 Urine 450 575 205 Estimated Blood Loss 1465 Other: Voiding Method Indwelling Catheter Indwelling Catheter ABP, PAP, CO, CI - Last Documented Arterial Blood Pressure 157/73 - Exam Gen: AOx3, NAD VSS stable at this time Integument: Postop dressing is in good position and condition. Drains are putting out moderate bloody serosanguineous fluid Palpation: Mild tenderness with palpation to the midline and paraspinal region of the lower thoracic and lumbar spine ROM: Full range of motion in all major muscle groups the bilateral upper and lower extremities Sensory Exam: Senory exam to light touch is intact C5-T1 Senosry exam to light touch is intact L2-S1 Motor: 4/5 strength appreciated in the bilateral lower extremities with hip flexion, knee flexion, knee extension, plantar flexion, dorsiflexion, EHL, FHL, normal postsurgical deconditioning Reflexes: 2/4 in all UE and LE Negative Ayse's, negative Babinski, negative clonus - Labs CBC & Chem 7: 04/22/22 03:54 04/22/22 03:54 Labs: Abnormal Lab Results - Last 24 Hours (Table) 04/21/22 04/22/22 04/22/22 Range/Units 18:10 03:54 03:54 RBC 3.69 L (3.80-5.40) m/uL Hgb 10.5 L (11.4-16.0) gm/dL Hct 33.2 L (34.0-46.0) % Neutrophils # 8.9 H (1.3-7.7) k/uL Lymphocytes # 0.4 L (1.0-4.8) k/uL Sodium 135 L (137-145) mmol/L Glucose 178 H (74-99) mg/dL POC Glucose (mg/dL) 199 H (70-110) mg/dL Assessment and Plan Assessment: Postoperative day #1 status post revision [id number] decompression and posterior lateral fusion Sinus tachycardia Plan: Pain control, continue use of both oral and IV medication as needed DVT prophylaxis, okay to utilize heparin 5000 units every 12 at this time Wound care, we'll continue to monitor surgical dressing, anticipate dressing change in the next 1-2 days. Continue to monitor her drain output, we'll likely discontinue in the next 48 hours Recommend weight-bear as tolerated with a walker, PT/OT evaluation. We disc ussed different exercises to utilize while lying in bed, this to include pumping the ankles along with extending and flexing the knees Out of bed for all meals, encourage incentive spirometer Discussed with patient likely discontinue urinary catheter on 04/23/2022 Medical recommendations We'll continue to follow during inpatient stay Time with Patient: Less than 30
--- NOTE | 2022-04-22 13:55 | P.CONS ---
History of Present Illness - Reason for Consult Consult date: 04/22/22 (delayed charting seen at 0930) anemia Requesting physician: Bertin Javier - Chief Complaint back pain - History of Present Illness Patient is a 61-year-old female with a history of GERD, prior pancreatitis, and spinal stenosis who presented for revision decompression and fusion of T10 to pelvis. She had an uneventful postoperative course but did struggle with pain. We are asked to consult for anemia. Patient seen and examined at bedside. She denies any recent illnesses such as cough, cold, fever, flu, nausea, vomiting, diarrhea prior to surgery. She was having back pain and some lower extremity weakness. She was walking with a cane. Currently she complains of severe back pain. She has been unable to sleep all night. She also describes shooting pain down into her legs. She denies any chest pain or shortness of breath at this time. Pertinent positives and negatives as discussed in HPI, a complete review of systems was performed and all other systems are negative. Vital signs reviewed General: Ill appearing, mild distress secondary to pain, appears at stated age Derm: warm, dry Head: atraumatic, normocephalic, symmetric Eyes: EOMI, no lid lag, anicteric sclera, pupils equal round reactive to light ENT: Nose and ears atraumatic, no thrush, no pharyngeal erythema Neck: No thyromegaly, no cervical lymphadenopathy, trachea midline, supple Mouth: no lip lesion, mucus membranes moist Cardiovascular: S1S2 tachycardic, no murmur, positive posterior tibial pulse bilateral, no edema, capillary refill less than 2 seconds Lungs: clear to auscultation bilateral, no rhonchi, no rales, no wheeze, no accessory muscle use Abdominal: soft, nontender to palpation, no guarding, no appreciable organomegaly, normal bowel sounds Ext: no gross muscle atrophy, blocker hand strength equal bilateral, able to move toes bilaterally, no contractures Neuro: CN II-XII grossly intact, light touch intact all 4 extremities, Psych: Alert, oriented, appropriate affect Assessment/Plan: 61-year-old female status post T 10 to pelvis decompression with fusion. Postoperative care being managed by orthopedic surgery. Acute blood loss anemia, anticipated outcome of surgery -No indication for transfusion at this time -Follow CBC GERD -Resume PPI Obesity with BMI 39.7 -Structured outpatient weight loss. DVT prophylaxis: SCDs Thank you for allowing us to participate in the care of this pleasant patient. Do not hesitate to contact us with questions. Someone can be reached from the [facility] hospitalist group all hours of the day at [phone] or via [employer]. Past Medical History Past Medical History: Asthma, GERD/Reflux, Osteoarthritis (OA) Additional Past Medical History / Comment(s): childhood asthma, hx pancreatitis, spinal stenosis History of Any Multi-Drug Resistant Organisms: None Reported Past Surgical History: Cholecystectomy, Hysterectomy, Joint Replacement, Orthopedic Surgery, Tonsillectomy Additional Past Surgical History / Comment(s): left knee replacement, left knee arthroscopy, Past Anesthesia/Blood Transfusion Reactions: No Reported Reaction Smoking Status: Former smoker - Past Family History Father Family Medical History: Cancer Additional Family Medical History / Comment(s): NOT 100% SURE IF DAD HAD CANCER Sister(s) Family Medical History: Cancer Mother Family Medical History: Pulmonary Embolus Medications and Allergies Home Medications Medication Instructions Recorded Confirmed Type Cyclobenzaprine [Flexeril] 5 mg PO TID 03/17/22 04/21/22 History Naproxen Sodium [Naproxen Sodium 500 mg PO BID PRN 03/17/22 04/21/22 History ER] traMADol HCL 50 mg PO BID PRN 03/17/22 04/21/22 History Omeprazole Magnesium [PriLOSEC OTC] 20 mg PO DAILY PRN 04/17/22 04/21/22 History HYDROcodone/APAP 5-325MG [[place] 5 PO PRN 04/21/22 History 5-325] Allergies Allergy/AdvReac Type Severity Reaction Status Date / Time mold Allergy sneezing Verified 04/21/22 06:14 Physical Exam Osteopathic Statement: *. No significant issues noted on an osteopathic structural exam other than those noted in the History and Physical/Consult. Vitals: Vital Signs Temp Pulse Pulse Resp BP BP Pulse Ox 04/22/22 13:00 103 H 13 160/83 100 04/22/22 12:00 107 H 12 157/84 100 04/22/22 11:00 110 H 9 L 153/83 97 04/22/22 10:00 116 H 13 145/59 96 04/22/22 09:00 120 H 11 L 145/59 95 04/22/22 08:37 99 04/22/22 08:00 98 F 113 H 12 165/86 100 04/22/22 07:00 116 H 12 163/87 99 04/22/22 06:00 121 H 16 153/83 99 04/22/22 05:00 110 H 12 149/83 100 04/22/22 04:00 99.5 F 115 H 14 134/73 100 04/22/22 03:00 116 H 12 144/72 97 04/22/22 02:00 110 H 16 145/72 100 04/22/22 01:00 105 H 20 143/76 100 04/22/22 00:00 98.5 F 108 H 20 137/73 100 04/21/22 23:00 111 H 16 138/71 99 04/21/22 22:00 113 H 16 169/82 99 04/21/22 21:14 100 04/21/22 21:00 97 16 159/93 100 04/21/22 20:00 97.8 F 100 12 159/75 100 04/21/22 19:00 97 13 157/77 99 04/21/22 18:08 86 15 99 04/21/22 17:40 85 16 143/63 04/21/22 17:23 89 16 139/63 99 04/21/22 17:08 85 16 147/65 100 04/21/22 16:53 88 16 150/65 100 04/21/22 16:38 79 18 150/73 100 04/21/22 16:23 78 18 144/78 100 04/21/22 16:08 97.0 F L 86 20 150/70 100 Intake and Output 04/21/22 04/22/22 04/22/22 22:59 06:59 14:59 Intake Total 360 210 300 Output Total 2230 560 305 Balance -1870 -350 -5 Intake: IV 300 Intake, IV Titration 60 210 300 Amount Lactated Ringers 1,000 ml 280 @ 0 mls/hr IV .[facility] Rx#:[id number] Lactated Ringers 1,000 ml 60 160 20 @ 100 mls/hr IV .Q10H [facility] Rx#:[id number] ceFAZolin 2 gm In Sodium 50 Chloride 0.9% 50 ml @ 100 mls/hr IVPB Q8HR [facility] Rx# :[id number] Output: Drainage 90 210 Right Back 60 110 Right Lower Back 30 100 Urine 675 350 305 Estimated Blood Loss 1465 Other: Voiding Method Indwelling Catheter Indwelling Catheter Indwelling Catheter Weight 111.6 kg ABP, PAP, CO, CI - Last 8 Hours Arterial Blood Pressure 173/68 Arterial Blood Pressure 167/69 Arterial Blood Pressure 157/73 Arterial Blood Pressure 147/71 Arterial Blood Pressure 120/72 Arterial Blood Pressure 147/67 Results CBC & Chem 7: 04/22/22 03:54 04/22/22 03:54 Labs: Abnormal Lab Results - Last 24 Hours (Table) 04/21/22 04/22/22 04/22/22 Range/Units 18:10 03:54 03:54 RBC 3.69 L (3.80-5.40) m/uL Hgb 10.5 L (11.4-16.0) gm/dL Hct 33.2 L (34.0-46.0) % Neutrophils # 8.9 H (1.3-7.7) k/uL Lymphocytes # 0.4 L (1.0-4.8) k/uL Sodium 135 L (137-145) mmol/L Glucose 178 H (74-99) mg/dL POC Glucose (mg/dL) 199 H (70-110) mg/dL
--- NOTE | 2022-04-22 15:51 | CT ---
EXAMINATION TYPE: CT thor lumbar spine wo con DATE OF EXAM: 04/22/2022 COMPARISON: None HISTORY: s/p revision [id number] decompression fusion CT DLP: 6.6 mGycm Automated exposure control for dose reduction was used. FINDINGS: Axial, coronal and sagittal images of the thoracolumbar spine are submitted. There is severe motion artifact in extreme metallic artifact from the patient's hardware. There is multilevel degenerative disc disease involving the proximal and mid thoracic spine with ante rior hypertrophic spurring. Vacuum disc phenomena seen in the midthoracic region compatible severe de generative disc disease. Assessment spinal canal is limited due to resolution and artifact. There appears to be extensive post surgical change involving extending from T10 through the sacrum and extending laterally into the katiana c bones. Surgical eneida are noted. There is a anterolisthesis of L3 relative to L4. Assessment of the structures at this level is nondia gnostic due to extreme metallic artifact. This results in nondiagnostic diagnostic exam. Surgical clips incidentally noted in the gallbladder fossa. Central line is suspected within the SVC. Calcified granuloma right lower lobe. Right lower lobe subsegmental consolidation noted. Surgical eneida are seen in the posterior soft tissues and epidermal region. There is air in the fac et level of the lower lumbar spine which could be postsurgical change although I could not exclude in fectious etiology. Grossly the hardware appears to be intact and the transpedicular screws appear to be situated within the respective vertebral bodies. Areas of sclerosis at L2-L3 may be discogenic.. IMPRESSION: 1. Extensive postsurgical change with extreme metallic artifact resulting in nondiagnostic assessment of the lower thoracic and entire lumbar spine. Hardware grossly intact. See above. 2. There is multilevel hypertrophic and degenerative change involving the proximal and mid thoracic s pine. Suspect a small disc herniation in the midthoracic region estimated at T7-T8. Correlate clinica lly warranted. 3. There is air in the left facet region at L5-S1 level which could be postsurgical change although i nfectious etiology not excluded. As noted above there is a grade 1 anterolisthesis L3 on L4. 4. Right lower lobe atelectasis or early infiltrate.
[2022-04-23] MEDS: LACTATED RINGERS 1,000 ML IV SCH ×2 (01:18→05:17)
[2022-04-23] MEDS: ACETAMINOPHEN TAB 325 MG TAB PO SCH ×4 (01:48→18:42)
[2022-04-23] MEDS: HYDROmorphone 1 MG/ML 1 ML SYRINGE IVP PRN ×3 (03:58→22:28)
[2022-04-23 05:49] LABS: HCT 25.5 % (34.0-46.0); Hypochromasia Slight; MCH 29.1 pg (25.0-35.0); MCHC 32.3 g/dL (31.0-37.0); Mean Platelet Volume 8.7; Platelet Count 196 k/uL (150-450); RBC 2.83 m/uL (3.80-5.40); WBC 7.8 k/uL (3.8-10.6)
[2022-04-23 06:13] LABS: African American GFR (CKD) >90 (>60 ml/min/1.73 sqM); Anion Gap 6 mmol/L; Blood Urea Nitrogen 8 mg/dL (7-17); Calcium 7.7 mg/dL (8.4-10.2); Carbon Dioxide 26 mmol/L (22-30); Chloride 102 mmol/L (98-107); Glucose 140 mg/dL (74-99); Non-African American GFR(CKD) >90 (>60 ml/min/1.73 sqM); Potassium 3.6 mmol/L (3.5-5.1); Sodium 134 mmol/L (137-145)
[2022-04-23 06:34] LABS: HGB 8.2 gm/dL (11.4-16.0)
[2022-04-23] MEDS: HYDROcodone/APAP 10-325MG 1 EACH TAB PO PRN ×2 (09:45→17:53)
--- NOTE | 2022-04-23 14:04 | P.PN ---
Subjective Progress Note Date: 04/23/22 Principal diagnosis: 1. Adjacent segment disease L1-L2, L2-L3 and L5-S1 with severe stenosis L1-S1; neurogenic claudication; lower extremity weakness Patient seen at bedside this morning resting comfortably. Physical therapy was about to work with patient. Patient says she did get up yesterday with physical therapy and was able to sit in the chair. Patient says she does have some pain mostly localized to her lower back at this time. Sotelo/catheter in place. Patient says she has not had bowel movement yet, however, patient says she has been passing gas. Patient denies chest pain, fever, shortness breath, nausea, vomiting, change in vision, loss of bowel/bladder control Objective - Vital Signs Vital signs: Vital Signs Temp 98 F 04/23/22 12:12 Pulse 109 H 04/23/22 12:12 Resp 20 04/23/22 12:12 BP 104/73 04/23/22 12:12 Pulse Ox 95 04/23/22 12:12 FiO2 Intake & Output 04/22/22 04/23/22 04/23/22 18:59 06:59 18:59 Intake Total 800 Output Total 650 710 Balance 150 -710 Intake: Intake, IV Titration 800 Amount Lactated Ringers 1,000 ml 780 @ 0 mls/hr IV .[facility] Rx#:[id number] Lactated Ringers 1,000 ml 20 @ 100 mls/hr IV .Q10H [facility] Rx#:[id number] Output: Drainage 190 110 Right Back 140 60 Right Lower Back 50 50 Urine 460 600 Other: Voiding Method Indwelling Catheter Indwelling Catheter ABP, PAP, CO, CI - Last Documented Arterial Blood Pressure 158/59 - Exam Drains in place at this time patient with serosanguineous output. 110 mL overnight. Dressing is in place over incision on lumbar spine. Plan for dressing change tomorrow. Sensation is equal, symmetric, bilaterally intact throughout the upper and lower extremities. There is some tenderness to palpation of the lumbar spine over incision. Nontender to palpation throughout rest of exam. Patient has full range of motion bilateral extremities on exam. Patient does have some limited range of motion in bilateral lower extremities and hip flexion/extension due to pain. Full range of motion bilateral lower extremities and knee flexion extension and ankle dorsi/plantar flexion. Radial pulse intact, 2+, bilaterally. Refill under 3 seconds in digits upper extremities. Negative Homans bilaterally. - Labs CBC & Chem 7: 04/23/22 04:52 04/23/22 04:52 Labs: Abnormal Lab Results - Last 24 Hours (Table) 04/23/22 04/23/22 Range/Units 04:52 04:52 RBC 2.83 L (3.80-5.40) m/uL Hgb 8.2 L D (11.4-16.0) gm/dL Hct 25.5 L (34.0-46.0) % Sodium 134 L (137-145) mmol/L Glucose 140 H (74-99) mg/dL Calcium 7.7 L (8.4-10.2) mg/dL Assessment and Plan Assessment: 1. Adjacent segment disease L1-L2, L2-L3 and L5-S1 with severe stenosis L1-S1; neurogenic claudication; lower extremity weakness - Postoperative day #2 status post T10 to pelvis revision decompression and fusion Plan: 1. Adjacent segment disease L1-L2, L2-L3 and L5-S1 with severe stenosis L1-S1; neurogenic claudication; lower extremity weakness - [id number] decompression and fusion performed 04/21/2022. Patient stable at bedside this morning. 110 mL output and drains overnight. We'll maintain drains for now. Plan to pull drain(s) tomorrow, 04/24/2022. Incision intact. Optifoam dressing in place. Plan for dressing change tomorrow as well. We'll continue to follow patient during stay in hospital. 2. Appreciate medical management 3. Pain management - norc; flexeril; tylenol; dilaudid only if necessary 4. DVT prophylaxis - mechanical 5. GI prophylaxis - senna; protonix 6. PT/OT - weightbearing as tolerated with walker 7. Encourage incentive spirometer 8. Discharge planning - home with health services tmrw vs Wednesday Time with Patient: Less than 30
--- NOTE | 2022-04-23 14:25 | P.PN ---
Subjective Progress Note Date: 04/23/22 Patient is a 61-year-old female with a history of GERD, prior pancreatitis, and spinal stenosis who presented for revision decompression and fusion of T10 to pelvis. She had an uneventful postoperative course but did struggle with pain. We are asked to consult for anemia. Patient seen and examined at bedside. Her pain is much more tolerable than yesterday. Denies any nausea, vomiting. We discussed the importance of alternating IV and oral pain medications. General: nontoxic, no distress, appears at stated age, obese Derm: warm, dry Head: atraumatic, normocephalic, symmetric Eyes: EOMI, no lid lag, anicteric sclera Mouth: no lip lesion, mucus membranes moist Cardiovascular: S1S2 reg, no murmur, positive posterior tibial pulse bilateral, Lungs: Decreased breath sounds bilateral, no rhonchi, no rales , no accessory muscle use Abdominal: soft, nontender to palpation, no guarding, no appreciable organomegaly Ext: no gross muscle atrophy, no edema, no contractures Neuro: CN II-XI grossly intact, no focal neuro deficits Psych: Alert, oriented, appropriate affect Assessment/Plan: 61-year-old female status post T 10 to pelvis decompression with fusion. Postoperative care being managed by orthopedic surgery. Acute blood loss anemia, anticipated outcome of surgery -No indication for transfusion at this time -Follow CBC -Check iron studies GERD - PPI Obesity with BMI 39.7 -Structured outpatient weight loss. DVT prophylaxis: SCDs Thank you for allowing us to participate in the care of this pleasant patient. Do not hesitate to contact us with questions. Someone can be reached from the [facility] hospitalist group all hours of the day at [phone] or via perfect serve. Objective - Vital Signs Vital signs: Vital Signs Temp 98 F 04/23/22 12:12 Pulse 109 H 04/23/22 12:12 Resp 20 04/23/22 12:12 BP 104/73 04/23/22 12:12 Pulse Ox 95 04/23/22 12:12 FiO2 Intake & Output 04/22/22 04/23/22 04/23/22 18:59 06:59 18:59 Intake Total 800 Output Total 650 710 Balance 150 -710 Intake: Intake, IV Titration 800 Amount Lactated Ringers 1,000 ml 780 @ 0 mls/hr IV .[facility] Rx#:[id number] Lactated Ringers 1,000 ml 20 @ 100 mls/hr IV .Q10H [facility] Rx#:[id number] Output: Drainage 190 110 Right Back 140 60 Right Lower Back 50 50 Urine 460 600 Other: Voiding Method Indwelling Catheter Indwelling Catheter ABP, PAP, CO, CI - Last Documented Arterial Blood Pressure 158/59 - Labs CBC & Chem 7: 04/23/22 04:52 04/23/22 04:52 Labs: Abnormal Lab Results - Last 24 Hours (Table) 04/23/22 04/23/22 Range/Units 04:52 04:52 RBC 2.83 L (3.80-5.40) m/uL Hgb 8.2 L D (11.4-16.0) gm/dL Hct 25.5 L (34.0-46.0) % Sodium 134 L (137-145) mmol/L Glucose 140 H (74-99) mg/dL Calcium 7.7 L (8.4-10.2) mg/dL
--- NOTE | 2022-04-23 16:44 | P.PN ---
Subjective Progress Note Date: 04/23/22 This is a 61-year-old female patient was brought into the intensive care unit for monitoring of the patient extensive spine surgery involving the thoracic spine. The patient had decompression multilevel with fusion. The patient was extubated in the operating room and the patient was brought in for further monitoring. The patient is currently awake and alert and following commands. Moving all 4 extremities. No neurological deficits. He is slightly tachycardic and he is in sinus tachycardia with a heart rate of 115. Pain is under adequate control. Is on 2 L of Oxymizer nasal cannula with a pulse ox of 96%. Blood pressure is stable. Hemodynamically stable. The night was uneventful. Blood work from today shows a white cell count of 10.1 with hemoglobin 10.5 and a platelet count of 49. Sodium is 135. BNP is at 40 with a creatinine of 0.65 and a calcium level is at 8.4. The patient otherwise is using the incentive spirometer. The chest x-ray was on postop yesterday and showed no acute abnormalities. The patient is seen today 04/23/2022 in follow-up on the regular medical floor. She is currently resting comfortably in bed. Awake and alert in no acute distress. Maintaining good O2 saturations in the 90s on room air. Her pain is fairly well controlled. She's been up in the chair today with assistance. Moving all 4 extremities. Denies any extremity weakness. White count 7.8. Hemoglobin 8.2. Sodium 134. Potassium 3.6. BUN 8. Creatinine 0.55. Objective - Vital Signs Vital signs: Vital Signs Temp 98 F 04/23/22 12:12 Pulse 109 H 04/23/22 12:12 Resp 20 04/23/22 12:12 BP 104/73 04/23/22 12:12 Pulse Ox 95 04/23/22 12:12 FiO2 Intake & Output 04/22/22 04/23/22 04/23/22 18:59 06:59 18:59 Intake Total 800 Output Total 650 710 Balance 150 -710 Intake: Intake, IV Titration 800 Amount Lactated Ringers 1,000 ml 780 @ 0 mls/hr IV .[facility] Rx#:[id number] Lactated Ringers 1,000 ml 20 @ 100 mls/hr IV .Q10H [facility] Rx#:[id number] Output: Drainage 190 110 Right Back 140 60 Right Lower Back 50 50 Urine 460 600 Other: Voiding Method Indwelling Catheter Indwelling Catheter ABP, PAP, CO, CI - Last Documented Arterial Blood Pressure 158/59 - Exam The patient is an alert oriented very pleasant 61-year-old female patient. On room air. Well nourished and normally developed. Vital signs as documented. Head exam is unremarkable. No scleral icterus or corneal arcus noted. Neck is without jugular venous distension, thyromegaly, or carotid bruits. Carotid upstrokes are brisk bilaterally. Lungs are clear to auscultation and percussion. Cardiac exam reveals the PMI to be normally sized and situated. Rhythm is regula r. First and second heart sounds normal. No murmurs, rubs or gallops. The patient has slightly tachycardic and the patient is having some sinus tachycardia. Abdominal exam reveals normal bowel sounds, no masses, no organomegaly and no aortic enlargement. Extremities are nonedematous and both femoral and pedal pulses are normal.Examination of the skin revealed no evidence of significant rashes, suspicious appearing nevi or other concerning lesions.Neurologically, the patient is awake and alert and the patient does not have any focal neurological deficit. Cranial nerves are essentially intact. The patient will go for eczema visible limitation. Surgical site over the left spinal areas dry clean and intact. - Labs CBC & Chem 7: 04/23/22 04:52 04/23/22 04:52 Labs: Abnormal Lab Results - Last 24 Hours (Table) 04/23/22 04/23/22 Range/Units 04:52 04:52 RBC 2.83 L (3.80-5.40) m/uL Hgb 8.2 L D (11.4-16.0) gm/dL Hct 25.5 L (34.0-46.0) % Sodium 134 L (137-145) mmol/L Glucose 140 H (74-99) mg/dL Calcium 7.7 L (8.4-10.2) mg/dL Assessment and Plan Assessment: Lumbar decompression and fusion, multilevel involving the T10 spine and the patient also had a pelvic revision. The patient's postoperative day #2. Hemodynamically stable and neurologically intact at this point in time. Back pain secondary to above, receiving a combination of tramadol and Dilaudid for pain control Sinus tachycardia Bronchial asthma, mild intermittent in nature, not using any form of maintenance medications Remote history of pancreatitis Multiple back surgeries and other orthopedic surgeries as stated in the HPI plan Plan: The patient was seen and evaluated Labs and medications reviewed Stable and on room air Continue with the incentive spirometer Increase her activity as tolerated We will follow as needed I have personally seen and examined the patient, performed the documentation and the assessment and plan as written. Number of minutes spent on the visit: 10.
[2022-04-24] MEDS ORDERED: HYDROmorphone 1 MG/ML 1 ML SYRINGE ONE (01:50)
[2022-04-24 05:21] LABS: HCT 25.9 % (34.0-46.0); HGB 8.8 gm/dL (11.4-16.0); Hypochromasia Slight; MCH 30.4 pg (25.0-35.0); MCHC 33.9 g/dL (31.0-37.0); MCV 89.8 fL (80.0-100.0); Platelet Count 178 k/uL (150-450); RBC 2.88 m/uL (3.80-5.40); RDW 13.5 % (11.5-15.5); WBC 5.1 k/uL (3.8-10.6)
[2022-04-24] MEDS: ACETAMINOPHEN TAB 325 MG TAB PO SCH ×4 (05:30→17:43)
[2022-04-24] MEDS: HYDROcodone/APAP 10-325MG 1 EACH TAB PO PRN ×2 (08:03→22:28)
--- NOTE | 2022-04-24 08:17 | P.OP ---
Date of Procedure: 04/21/22 Preoperative Diagnosis: 1. Status post L2-4 decompression fusion with ASD L4-5 and L5-S1 2. 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 Severe stenosis central and foraminal L2-4 4. 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 Mechanical low back pain 6. Neurogenic claudication Postoperative Diagnosis: 1. Status post L2-4 decompression fusion with ASD L4-5 and L5-S1 2. 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 Severe stenosis central and foraminal L2-4 4. 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 Mechanical low back pain 6. Neurogenic claudication Procedure(s) Performed: 1. L1-2 and L2-3 intradiscal osteotomy (3 column) for deformity correction (25807b7) 2. L1-2, L2-3 and L5-S1 posteriolateral and interbody fusion (72205, 84519a1) 3. Posteriolateral fusion T10-L1 (71962, 04686t0) 4. Revision posteriolateral fusion L3-5 (40773, 05951)/59 5. Attachment of the caudal end of the construct to the bony pelvis (07905) 6. Segmental instrumentation [id number] (04482) 7. Removal of hardware L4-5 (25574) 8. Insertion of biomechanical device L1-2, L2-3 and L5-S1 (42274q9) 9. Exploration of fusion L2-4 (64441) 10. Bilateral laminectomy, complete facetectomy and foraminotomy L1-S1, revision and distinct decompression for more than cage placement (71870, 74948u6)/59 11. Use of Orbeus navigation for the placement of screws and instrumentation (09581/59) 12. Use of intraoperative neuromonitoring Implants: -Linda Emden screw and wayne system -Amplify Cage x1 -Globus Sable cage x1 -Globus Rise cage x1 -MagnatOs -Allograft -Autograft Anesthesia: GETA Surgeon: Bertin Javier Gate Supervisor #1: Jones Schuster Estimated Blood Loss (ml): 1,300 IV fluids (ml): 3,400 Urine output (ml): 350 Pathology: none sent Condition: stable Disposition: ICU Indications for Procedure: Ms. Bui is presenting for evaluation of low back pain. It was my pleasure to have seen and examined Ms. Bui. In our visit today we have had a chance to go over subjective complaints, physical examination findings and treatments including the natural course history without intervention and various interventional options. The patients imaging demonstrates: XRay taken on 11/27/21 of Lumbar Spine and Pelvis: images reviewed demonstrate postsurgical changes from L2 to L5 with multiple different constructs. From L2 to L4 there is pedicle screw wayne construct with interbody fusion at L3-L4 which appears to be holding its position. At L4-L5 there is interbody fusion however rods do not extend to the L5 screws there are screws in L5 which appeared to be left in place from previous surgery likely due to their appearance as older in nature and the hardware as not compatible with new or hardware. There is proximal junctional failure at L1-L2 with severe spondylosis as well as collapse and segmental kyphosis. There is distal junctional failure at L5-S1 with severe spondylosis segmental kyphosis and collapse. There is severe facet arthrosis at these levels as well. Global lumbar lordosis is fairly well maintained coronal balance shows minor levoscoliosis around these levels no fracture or dislocation is noted otherwise. AP pelvis demonstrates congruent level pelvis no fracture CT myelogram from [place]: this is reviewed with the pt and demonstrates severe ASD at L1-3 and L5-S1. There is disc dessication as well as height loss. There is severe retrolisthesis with abnormal lordosis at L2-3 and L3-4 likely secondary to the ASD. There is severe stenosis L1-2, L2-3 and L3,4 as well as moderate central stenosis L5-S1. There is flattening of the normal lodosis due to these findings as well. LL is around 25 with PI around 56 mismatch. No fractures noted. No lesions noted. Severe spondylosis through these regions. REasonable fusion without hardware fialure from previous surgeries. On physical exam, Ms. Bui demonstrates signifcantly restricted lumbar range of motion with bilateral lower extremity radiculopathy and weakness. Furthermore the patient does also demonstrate bilateral L3-L4, L5-S1 paresthesias. I have explained to the patient that as their condition progresses it will cause further neurological deficits and eventual paralysis. Based on the patients imaging, physical exam, and the rapid progression and disabling nature of their symptoms, at this time I recommend surgery in the form or a: [id number] Decompression and Fusion. I discussed the risk and benefits of this procedure at length with Ms. Bui. The patient agreed to considered pursuing the procedure abovementioned. Prior to surgery, she should follow up with her PCP (Cardio, ID, IM etc) for clearance. Questions were invited and answered, and the patient wishes to proceed as outlined below. Currently, I am recommendin.[id number] Decompression and Fusion 2.Follow up with PCP for surgical clearance 3.Review of surgical risks and benefits as well as an educational packet on the proposed surgical procedure. Description of Procedure: The patient was seen and examined in the preoperative area. All preoperative protocols were followed. Informed consent was obtained risks and benefits of the procedure were discussed at length. Risks including bleeding infection damage to the surrounding tissue and risk of reoperation were discussed with the patient. Risk of anesthesia up to and including was a discussed with the patient. These are outlined in the risk review. They were willing to accept these risks and all of the risks of surgery. The patient was given a weight- based dose of antibiotics in the form of 2 g Ancef were redosed every 4 hours. The patient was seen and evaluated by the anesthesia team who deemed them fit for surgery. The site was marked, the patient was willing to proceed with the procedure. The patient was transferred to the operative suite by the Department of anesthesia. They were then drifted off to sleep by the department anesthesia and GETA was performed. The patient tolerated this well. Sotelo catheter was placed by nursing staff, atraumatically. Once confirmation of lines and ventilation the patient was transferred to a prone Kevin table very carefully. All bony prominences including wrists, elbows, axilla, chest, hips, and thighs, and feet were padded very well. Special attention was paid to the genitalia and these were padded accordingly. SCDs were placed on bilateral lower extremities and were connected. Arms were well padded and placed on arm boards up and out in the 90/90 position. Once in position, again we confirmed good ventilation capabilities and that lines were running appropriately. The patient's thoracolumbar and lumbosacral spine was then exposed. 1010s were placed outlining the incision site. Standard alcohol was used to clean the incision site and allowed to dry. C-arm was used to biomark the patient and confirm level for incision which was marked with a skin marker. Operative briefing was performed with all teams and everyone in agreement to proceed. The patient was then prepped and draped in a normal sterile fashion. Timeout was then performed and all parties were in agreement with the procedure to be performed. Midline skin incision was made over the previously by marked area and previous incision and dissection taken down to the spinous process and fascia of T932 the pelvis. Midline fasciotomy was then made in subpectoral periosteal dissection was taken down over the lamina of T9 through S1 and out to the SI joint and pelvic region and PSIS. Old hardware at L2 through L4 to L5 was identified. The fusion of this area was explored and there was reasonable posterior lateral fusion of L4-L5 however the L5 screws were not connected to the rest of the structure as they were different types of screws. The screws were then removed. We then removed all hardware from L2 to L4. The area was inspected and irrigated and debrided using rongeur and Kerrison. Once this was accomplished we placed the tracker first record navigation of the spinous process of L2 and performed an intraoperative 3-D computed tomography scan to register. We then confirmed the accuracy of the skin and proceeded with bilateral placement of jackie dware from T10 to S1. Screws were placed bilaterally using a navigated bur to create a airplane pilot supervisor hole followed by a navigated all tapped which was then used to measure the screw and then the screw was placed using a navigated screwdriver. Screws were placed again bilaterally from T10 to S1. Once screws were in position they were tested and all screws tested above 20 mA. We then took live fluoroscopic images of the AP of this area and screws were in safe position. We then under lateral fluoroscopy proceeded with placement of pelvic screws bilaterally the bur was used to create a airplane pilot supervisor hole in a modified iliac screw placement approach. This was then followed by a paddle gear shifter which was advanced into the iliac wing. We then took a 30 by 30 iliac oblique view to visualize the gearshift and the teardrop and it was. Feeler was then used to confirm within bone and we measured for screw placement. An 8 5 x 80 mm screws were placed bilaterally using this fashion once screws were in position we again took iliac oblique AP and lateral views to visualize screws in very good position. We then proceeded with decompression and fusion at the remaining levels. At L5-S1 bilateral laminectomy complete facetectomy and foraminotomy was performed using high-speed bur and Kerrison rongeurs. This allowed for mobilization of this level as well as complete decompression. We accessed the disc space while protecting dural elements. A 9 mm box osteotome was used to create the space and removed disc as well as sequential shaving down-biting curet and pituitary to remove any further disc material. Once this was accomplished we then sized for an Amplify cage. Once this was sized or protecting dural elements a mixture of 5 factor autograft and allograft was placed anterior within the disc space followed by the cage cage was impacted into position under lateral fluoroscopic guidance. Once in position of the cage was expanded and had good fit. We then locked the cage with the locking screw inserter operator was removed with a backfill the cage DBM. We then maribeth our attention to further decompression from L1 to S1 there is exuberant scar tissue that formed in this area and a complete decompression from previous surgeries bilateral laminectomy complete facetectomy foraminotomy was then performed from L1 through S1 using high-speed bur care's rongeurs and curet. Once this was acc omplished there was adequate decompression at all levels. Then turned our attention to L1-L2 were there was severe deformity. Intradiscal osteotomy was performed at L1-L2 using osteotome advancing into the anterior two thirds of the vertebral body to correct the deformity and loose at this level. Once this was accomplished the level was able to be mobilized and sequential shaving was performed with sequential shaving where able to size for a globus stable cage once we size for this the cage was then impacted into place while protecting dural elements using lateral fluoroscopic guidance. Once cages in position it was expanded and provide a good lift to the area. This restored height as well as lordosis and allowed for further decompression. We then turned our attention to the L2-L3 level where there was retrolisthesis and deformity once again intradiscal osteotomy 3 column osteotomy was performed at this level again with a osteotome advancing into the anterior two thirds of the vertebral body. Complete discectomy was then performed again using sequential fernanda double ended curet pituitary and osteotomes. Once this was accomplished we sized for a globus rise cage as there was more need for parallel rise in this area. The cage was then impacted in position or protecting dural elements under lateral fluoroscopic guidance. It was then expanded and allowed for good lift as well as reduction of the deformity. After this was accomplished we thoroughly irrigated the wound with 3 L of normal sterile saline. We then selected rods and bent them accordingly and cut them to length the rods were then placed into bilateral iliac screws and tightened the rods were then sequentially reduced into the cranial screws 1 at a time bilaterally. Once their positions set screws were then placed and once placed they were tightened. We then final tightened setscrews below L2-L3 and then performed a distraction at L2-L3 and L1-L2 for further deformity correction. Once this was accomplished we final tightened the cranial screws. All screws were final tightened and were in good position within selected cross-links and place these. These were final tightened. Meticulous hemostasis was performed throughout the entire case. We then irrigated the wound thoroughly with 3 L of Ancef irrigation 3 L of gentamicin irrigation and 3 L of normal sterile saline. Posterior lateral gutters were decorticated using a high-speed bur from T10 all the way down to S1 and into the pelvic region of the SI joints. Then placed Surgicel over the dura were then placed back to toss allograft and autograft and posterior lateral gutters. Final images were taken which showed good placement of hardware as well as good reduction of deformity. All hardware was in good position in safe position. We then placed to drink deep drains vancomycin powder 2 g placed within the wound along with stimulated and beads which were laced with tobramycin and gentamicin. We then proceeded with layered closure first in the deep fascia with #1 PDS in a [id number] fashion followed by 0 PDS in a simple fashion. Deep subcu tissues closed with 0 PDS superficial subcu tissue closed with 0 Vicryl and 2-0 Vicryl and the skin was closed with skin eneida and drains were sutured in place the wound was then cleaned and dressed with operative foam 4 x 4's and Tegaderms. The patient was transferred back to their hospital bed atraumatically. Drain continued to hold suction and were in good position. Patient was then awakened and extubated by the department of anesthesia having tolerated the procedure very well with no complications. They were transferred to the postoperative care unit in stable condition.
[2022-04-24 09:34] LABS: % Iron Saturation 9.15 (12.00-45.00)
--- NOTE | 2022-04-24 09:49 | P.PN ---
Subjective Progress Note Date: 04/24/22 Patient is a 61-year-old female with a history of GERD, prior pancreatitis, and spinal stenosis who presented for revision decompression and fusion of T10 to pelvis. She had an uneventful postoperative course but did struggle with pain. We are asked to consult for anemia. Patient seen and examined at bedside. She was able to get up and sit in a chair yesterday and was able to move more. She states her pain is slowly getting better. She denies any chest pain or shortness of breath. General: nontoxic, no distress, appears at stated age, obese Derm: warm, dry Head: atraumatic, normocephalic, symmetric Eyes: EOMI, no lid lag, anicteric sclera Mouth: no lip lesion, mucus membranes moist Cardiovascular: S1S2 reg, no murmur, positive posterior tibial pulse bilateral, Lungs: Decreased breath sounds bilateral, no rhonchi, no rales , no accessory muscle use Abdominal: soft, nontender to palpation, no guarding, no appreciable organomegaly Ext: no gross muscle atrophy, trace edema, no contractures Neuro: CN II-XI grossly intact, no focal neuro deficits Psych: Alert, oriented, appropriate affect Assessment/Plan: 61-year-old female status post T 10 to pelvis decompression with fusion. Postoperative care being managed by orthopedic surgery. Acute blood loss anemia, anticipated outcome of surgery -No indication for transfusion at this time -Follow CBC -Await iron studies GERD - PPI Obesity with BMI 39.7 -Structured outpatient weight loss. - D/C freeman, D/C central line DVT prophylaxis: SCDs Thank you for allowing us to participate in the care of this pleasant patient. Do not hesitate to contact us with questions. Someone can be reached from the [facility] hospitalist group all hours of the day at [phone] or via [employer]. Active Medications Generic Name Dose Route Start Last Admin Trade Name Freq PRN Reason Stop Dose Admin Acetaminophen 650 mg 04/21/22 18:00 04/24/22 07:37 Acetaminophen Tab 325 Mg Tab PO Not Given Q6HR MELISSA Hydrocodone Bitart/Acetaminophen 1 each 04/21/22 14:40 04/22/22 15:58 Hydrocodone/Apap 5-325mg 1 Each Tab PO 1 each Q6HR PRN Administration Pain Scale 4 - 6 Hydrocodone Bitart/Acetaminophen 1 each 04/21/22 14:40 04/24/22 08:03 Hydrocodone/Apap 10-325mg 1 Each Tab PO 1 each Q6H PRN Administration Pain Scale 7 - 10 Cyclobenzaprine HCl 5 mg 04/21/22 14:40 04/23/22 12:30 Cyclobenzaprine 5 Mg Tab PO 5 mg TID PRN Administration Muscle Spasm Hydromorphone HCl 0.5 mg 04/21/22 14:40 04/22/22 08:57 Hydromorphone 0.5 Mg/0.5 Ml Syringe IVP 0.5 mg Q3HR PRN Administration Pain Scale 4 - 6 Hydromorphone HCl 1 mg 04/21/22 14:40 04/23/22 22:28 Hydromorphone 1 Mg/Ml 1 Ml Syringe IVP 1 mg Q3HR PRN Administration Pain Scale of 7 - 10 Pantoprazole Sodium 40 mg 04/22/22 08:46 Pantoprazole 40 Mg Tablet PO DAILY PRN Heartburn Senna/Docusate Sodium 2 each 04/21/22 14:40 Sennosides-Docusate Sodium 1 Each Tab PO DAILY PRN Constipation Objective - Vital Signs Vital signs: Vital Signs Temp 98.6 F 04/24/22 04:21 Pulse 105 H 04/24/22 04:21 Resp 15 04/24/22 04:21 BP 126/78 04/24/22 04:21 Pulse Ox 98 04/24/22 04:21 FiO2 Intake & Output 04/23/22 04/24/22 04/24/22 18:59 06:59 18:59 Output Total 1095 1795 Balance -1095 -1795 Output: Drainage 195 195 Right Back 105 105 Right Lower Back 90 90 Urine 900 1600 Other: Voiding Method Indwelling Catheter Indwelling Catheter Indwelling Catheter ABP, PAP, CO, CI - Last Documented Arterial Blood Pressure 158/59 - Labs CBC & Chem 7: 04/24/22 04:27 04/23/22 04:52 Labs: Abnormal Lab Results - Last 24 Hours (Table) 04/24/22 04/24/22 Range/Units 04:27 04:27 RBC 2.88 L (3.80-5.40) m/uL Hgb 8.8 L (11.4-16.0) gm/dL Hct 25.9 L (34.0-46.0) % Iron 17 L (50-170) ug/dL TIBC 185 L (228-460) ug/dL % Saturation 9.15 L (12.00-45.00) Transferrin 132.0 L (204.0-354.0) mg/dL
--- NOTE | 2022-04-24 12:34 | P.PN ---
Subjective Progress Note Date: 04/24/22 Principal diagnosis: 1. Adjacent segment disease L1-L2, L2-L3 and L5-S1 with severe stenosis L1-S1; neurogenic claudication; lower extremity weakness Patient seen sitting up in chair at bedside this morning. Physical therapy was about to work with patient. Patient says she did get up this morning with physical therapy and walked to hallway using walker and then was able to sit in the chair. Patient says she does have some pain mostly localized to her lower back at this time. Sotelo/catheter in place. Patient says she has not had bowel movement yet, however, patient says she has been passing gas. Patient denies chest pain, fever, shortness breath, nausea, vomiting, change in vision, loss of bowel/bladder control Objective - Vital Signs Vital signs: Vital Signs Temp 98.6 F 04/24/22 04:21 Pulse 105 H 04/24/22 04:21 Resp 15 04/24/22 04:21 BP 126/78 04/24/22 04:21 Pulse Ox 98 04/24/22 04:21 FiO2 Intake & Output 04/23/22 04/24/22 04/24/22 18:59 06:59 18:59 Output Total 1095 1795 140 Balance -1095 -1795 -140 Output: Drainage 195 195 140 Right Back 105 105 90 Right Lower Back 90 90 50 Urine 900 1600 Other: Voiding Method Indwelling Catheter Indwelling Catheter Indwelling Catheter ABP, PAP, CO, CI - Last Documented Arterial Blood Pressure 158/59 - Exam Drains in place at this time patient with serosanguineous output. 110 mL overnight. Dressing is in place over incision on lumbar spine. Plan for dressing change tomorrow. Sensation is equal, symmetric, bilaterally intact throughout the upper and lower extremities. There is some tenderness to palpation of the lumbar spine over incision. Nontender to palpation throughout rest of exam. Patient has full range of motion bilateral extremities on exam. Patient does have some limited range of motion in bilateral lower extremities and hip flexion/extension due to pain. Full range of motion bilateral lower extremities and knee flexion extension and ankle dorsi/plantar flexion. Radial pulse intact, 2+, bilaterally. Refill under 3 seconds in digits upper extremities. Negative Homans bilaterally. - Labs CBC & Chem 7: 04/24/22 04:27 04/23/22 04:52 Labs: Abnormal Lab Results - Last 24 Hours (Table) 04/24/22 04/24/22 Range/Units 04:27 04:27 RBC 2.88 L (3.80-5.40) m/uL Hgb 8.8 L (11.4-16.0) gm/dL Hct 25.9 L (34.0-46.0) % Iron 17 L (50-170) ug/dL TIBC 185 L (228-460) ug/dL % Saturation 9.15 L (12.00-45.00) Transferrin 132.0 L (204.0-354.0) mg/dL Assessment and Plan Assessment: 1. Adjacent segment disease L1-L2, L2-L3 and L5-S1 with severe stenosis L1-S1; neurogenic claudication; lower extremity weakness - Postoperative day #3 status post T10 to pelvis revision decompression and fusion Plan: 1. Adjacent segment disease L1-L2, L2-L3 and L5-S1 with severe stenosis L1-S1; neurogenic claudication; lower extremity weakness - [id number] decompression and fusion performed 04/21/2022. Patient stable at bedside this morning. 110 mL output and drains overnight. We'll maintain drains for now. Leave drains to gravity. Plan to pull drain(s) tomorrow, 04/25/2022. Incision intact. Optifoam dressing in place. Plan for dressing change tomorrow as well. We'll continue to follow patient during stay in hospital. 2. Appreciate medical management 3. Pain management - norc; flexeril; tylenol; dilaudid only if necessary 4. DVT prophylaxis - mechanical 5. GI prophylaxis - senna; protonix 6. PT/OT - weightbearing as tolerated with walker 7. Encourage incentive spirometer 8. Discharge planning - home with health services Wednesday vs Wednesday Time with Patient: Less than 30
[2022-04-25] MEDS: ACETAMINOPHEN TAB 325 MG TAB PO SCH ×5 (01:06→23:24)
--- NOTE | 2022-04-25 09:08 | P.PN ---
Subjective Progress Note Date: 04/25/22 Principal diagnosis: 1. 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 Drains are in place. Patient says she was able to work with physical therapy yesterday and walked down to the hallway using walker. Patient says she has urinated multiple times since Sotelo/catheter was removed yesterday. Patient says she does have some back pain, however, it is improving over the past couple days. Patient denies chest pain, fever, shortness breath, nausea, vomiting, change in vision, loss of bowel/bladder control Objective - Vital Signs Vital signs: Vital Signs Temp 99.6 F 04/25/22 05:44 Pulse 90 04/25/22 07:46 Resp 18 04/25/22 05:44 BP 124/76 04/25/22 07:46 Pulse Ox 100 04/25/22 05:44 FiO2 Intake & Output 04/24/22 04/25/22 04/25/22 18:59 06:59 18:59 Output Total 641 56 Balance -641 -56 Output: Drainage 140 56 Right Back 90 36 Right Lower Back 50 20 Urine 501 Uretheral (Sotelo) 500 Other: Voiding Method Indwelling Catheter Toilet # Voids 1 3 ABP, PAP, CO, CI - Last Documented Arterial Blood Pressure 158/59 - Exam 56 mL output in drains overnight. Drains removed at bedisde this morning. sponge and tegaderms placed over drain incision. Optifoam dressing changed on surgical incision. [place] well aligned. Incision CDI, healing well. Sensation is equal, symmetric, bilaterally intact throughout the upper and lower extremities. There is some tenderness to palpation of the lumbar spine over incision. Nontender to palpation throughout rest of exam. Patient has full range of motion bilateral extremities on exam. Patient does have some limited range of motion in bilateral lower extremities and hip flexion/extension due to pain. Full range of motion bilateral lower extremities and knee flexion extension and ankle dorsi/plantar flexion. Radial pulse intact, 2+, bilaterally. Refill under 3 seconds in digits upper extremities. Negative Homans bilaterally. - Labs CBC & Chem 7: 04/24/22 04:27 04/23/22 04:52 Labs: Abnormal Lab Results - Last 24 Hours (Table) 04/24/22 Range/Units 04:27 Iron 17 L (50-170) ug/dL TIBC 185 L (228-460) ug/dL % Saturation 9.15 L (12.00-45.00) Transferrin 132.0 L (204.0-354.0) mg/dL Assessment and Plan Assessment: 1. 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 Adjacent segment disease L1-L2, L2-L3 and L5-S1 with severe stenosis L1-S1; neurogenic claudication; lower extremity weakness - [id number] decompression and fusion performed 04/21/2022. Patient stable at bedside this morning. 56 mL output in drains overnight. Drains removed at bedisde this morning. sponge and tegaderms placed over drain incision. Optifoam dressing changed on surgical incision. [place] well aligned. Incision CDI, healing well. Plan for discharge home tmrw with health services. 2. Appreciate medical management 3. Pain management - norc; flexeril; tylenol; dilaudid only if necessary 4. DVT prophylaxis - mechanical 5. GI prophylaxis - senna; protonix 6. PT/OT - weightbearing as tolerated with walker 7. Encourage incentive spirometer use 8. Discharge planning - home with health services tmrw, 04/26/2022 Time with Patient: Less than 30
[2022-04-25] MEDS: HYDROcodone/APAP 10-325MG 1 EACH TAB PO PRN (09:37)
[2022-04-25 11:54] LABS: Basophils % (A) 0 %; Eosinophils # (A) 0.1 k/uL (0-0.7); Eosinophils % (A) 1 %; HCT 26.3 % (34.0-46.0); HGB 8.6 gm/dL (11.4-16.0); Lymphocytes # (A) 0.5 k/uL (1.0-4.8); Lymphocytes % (A) 6 %; MCHC 32.8 g/dL (31.0-37.0); MCV 88.2 fL (80.0-100.0); Mean Platelet Volume 8.5; Monocytes # (A) 0.4 k/uL (0-1.0); Monocytes % (A) 5 %; Neutrophils # (A) 6.8 k/uL (1.3-7.7); Neutrophils % (A) 85 %; Platelet Count 212 k/uL (150-450); RBC 2.98 m/uL (3.80-5.40); RDW 13.9 % (11.5-15.5); WBC 7.9 k/uL (3.8-10.6)
--- NOTE | 2022-04-25 13:48 | P.PN ---
Subjective Progress Note Date: 04/25/22 The patient was seen at the site, no acute events overnight. Objective - Vital Signs Vital signs: Vital Signs Temp 98.3 F 04/25/22 12:52 Pulse 96 04/25/22 12:52 Resp 18 04/25/22 12:52 BP 113/75 04/25/22 12:52 Pulse Ox 95 04/25/22 12:52 FiO2 Intake & Output 04/24/22 04/25/22 04/25/22 18:59 06:59 18:59 Output Total 641 56 418 Balance -641 -56 -418 Output: Drainage 140 56 18 Right Back 90 36 18 Right Lower Back 50 20 Urine 501 400 Uretheral (Sotelo) 500 Other: Voiding Method Indwelling Catheter Toilet Toilet # Voids 1 3 1 ABP, PAP, CO, CI - Last Documented Arterial Blood Pressure 158/59 - Exam General: nontoxic, no distress, appears at stated age, obese Derm: warm, dry Head: atraumatic, normocephalic, symmetric Eyes: EOMI, no lid lag, anicteric sclera Mouth: no lip lesion, mucus membranes moist Cardiovascular: S1S2 reg, no murmur, positive posterior tibial pulse bilateral, Lungs: Decreased breath sounds bilateral, no rhonchi, no rales , no accessory muscle use Abdominal: soft, nontender to palpation, no guarding, no appreciable organomegaly Ext: no gross muscle atrophy, trace edema, no contractures Neuro: CN II-XI grossly intact, no focal neuro deficits Psych: Alert, oriented, appropriate affect - Labs CBC & Chem 7: 04/25/22 11:30 04/23/22 04:52 Labs: Abnormal Lab Results - Last 24 Hours (Table) 04/25/22 Range/Units 11:30 RBC 2.98 L (3.80-5.40) m/uL Hgb 8.6 L (11.4-16.0) gm/dL Hct 26.3 L (34.0-46.0) % Lymphocytes # 0.5 L (1.0-4.8) k/uL Assessment and Plan Assessment: 61-year-old female status post T 10 to pelvis decompression with fusion. Postoperative care being managed by orthopedic surgery. Acute blood loss anemia, anticipated outcome of surgery -No indication for transfusion at this time -Follow CBC -Ferritin was 163, iron was 17 -Discharge the patient on iron supplement GERD - PPI Obesity with BMI 39.7 -Structured outpatient weight loss. DVT prophylaxis: SCDs Thank you for allowing us to participate in the care of this pleasant patient. Do not hesitate to contact us with questions. Someone can be reached from the [facility] hospitalist group all hours of the day at [phone] or via [phone].
[2022-04-26] MEDS: HYDROcodone/APAP 10-325MG 1 EACH TAB PO PRN (04:51)
[2022-04-26] MEDS: ACETAMINOPHEN TAB 325 MG TAB PO SCH (06:02)
[2022-04-26 09:01] LABS: Basophils # (A) 0.02 X 10*3/uL (0.00-0.10); Basophils % (A) 0.3 %; Eosinophils # (A) 0.17 X 10*3/uL (0.04-0.35); Eosinophils % (A) 2.7 %; HCT 24.9 % (37.2-46.3); HGB 7.8 g/dL (12.0-15.0); Immature Grans, Automated 0.2 %; Lymphocytes # (A) 0.73 X 10*3/uL (0.90-5.00); Lymphocytes % (A) 11.4 %; MCH 28.4 pg (27.0-32.0); MCHC 31.3 g/dL (32.0-37.0); MCV 90.5 fL (80.0-97.0); Mean Platelet Volume 10.4 fL (9.5-12.2); Monocytes # (A) 0.64 X 10*3/uL (0.20-1.00); NRBC Per 100 WBC 0.3 /100 WBCS (0.0-0.0); Neutrophils # (A) 4.82 X 10*3/uL (1.80-7.70); Neutrophils % (A) 75.4 %; Platelet Count 221 X 10*3/uL (140-440); RBC 2.75 X 10*6/uL (4.10-5.20); RDW 14.3 % (11.5-14.5); WBC 6.39 X 10*3/uL (4.50-10.00)
[2022-04-26 09:10] LABS: African American GFR (CKD) 121.1 (60.0-200.0); Anion Gap 8.5 mmol/L (10.00-18.00); BUN/Creat Ratio 18.8 Ratio (12.00-20.00); Blood Urea Nitrogen 9.4 mg/dL (9.0-27.0); Carbon Dioxide 24.5 mmol/L (20.0-27.5); Magnesium 2.2 mg/dL (1.5-2.4); Non-African American GFR(CKD) 104.5 (60.0-200.0); Phosphorus 2.6 mg/dL (2.4-5.1)
--- NOTE | 2022-04-26 11:04 | P.PN ---
Subjective Progress Note Date: 04/26/22 The patient was seen at the site, no acute events overnight. Objective - Vital Signs Vital signs: Vital Signs Temp 98.6 F 04/26/22 04:30 Pulse 94 04/26/22 08:00 Resp 20 04/26/22 08:00 BP 139/74 04/26/22 04:30 Pulse Ox 98 04/26/22 04:30 FiO2 Intake & Output 04/25/22 04/26/22 04/26/22 18:59 06:59 18:59 Intake Total 240 Output Total 618 Balance -378 Intake: Oral 240 Output: Drainage 18 Right Back 18 Urine 600 Other: Voiding Method Toilet Toilet Toilet # Voids 3 1 ABP, PAP, CO, CI - Last Documented Arterial Blood Pressure 158/59 - Exam General: nontoxic, no distress, appears at stated age, obese Derm: warm, dry Head: atraumatic, normocephalic, symmetric Eyes: EOMI, no lid lag, anicteric sclera Mouth: no lip lesion, mucus membranes moist Cardiovascular: S1S2 reg, no murmur, positive posterior tibial pulse bilateral, Lungs: Decreased breath sounds bilateral, no rhonchi, no rales , no accessory muscle use Abdominal: soft, nontender to palpation, no guarding, no appreciable organomegaly Ext: no gross muscle atrophy, trace edema, no contractures Neuro: CN II-XI grossly intact, no focal neuro deficits Psych: Alert, oriented, appropriate affect - Labs CBC & Chem 7: 04/26/22 06:37 04/26/22 06:37 Labs: Abnormal Lab Results - Last 24 Hours (Table) 04/25/22 04/26/22 04/26/22 Range/Units 11:30 06:37 06:37 RBC 2.98 L 2.75 L (3.80-5.40) m/uL Hgb 8.6 L 7.8 L (11.4-16.0) gm/dL Hct 26.3 L 24.9 L (34.0-46.0) % MCHC 31.3 L (32.0-37.0) g/dL Absolute Nucleated RBC 0.02 H (0.00-0.00) X 10*3/uL Lymphocytes # 0.5 L 0.73 L (1.0-4.8) k/uL NRBC/100 WBC Diff 0.3 H (0.0-0.0) /100 WBCS Anion Gap 8.50 L (10.00-18.00) mmol/L Creatinine 0.5 L (0.6-1.5) mg/dL Glucose 154 H (70-110) mg/dL Calcium 8.0 L (8.7-10.3) mg/dL Assessment and Plan Assessment: 61-year-old female status post T 10 to pelvis decompression with fusion. Postoperative care being managed by orthopedic surgery. Acute blood loss anemia, anticipated outcome of surgery -No indication for transfusion at this time -Follow CBC -Ferritin was 163, iron was 17 -Discharge the patient on iron supplement - FU outpatient woth PCP GERD - PPI Obesity with BMI 39.7 -Structured outpatient weight loss. DVT prophylaxis: SCDs Thank you for allowing us to participate in the care of this pleasant patient. Do not hesitate to contact us with questions. Someone can be reached from the [facility] hospitalist group all hours of the day at [phone] or via [employer].
[2022-04-26] MEDS ORDERED: FERROUS SULFATE 325 MG TAB PO SCH (11:15)
--- NOTE | 2022-04-26 11:31 | P.PN ---
Subjective Progress Note Date: 04/26/22 Principal diagnosis: 1. 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 Patient says she was able to work with physical therapy yesterday and walked down to the hallway using walker. Patient says she has urinated multiple times since Sotelo/catheter was removed. Patient says she does have some back pain, however, it is improving over the past couple days. Patient denies chest pain, fever, shortness breath, nausea, vomiting, change in vision, loss of bowel/bladder control Objective - Vital Signs Vital signs: Vital Signs Temp 98.6 F 04/26/22 04:30 Pulse 94 04/26/22 08:00 Resp 20 04/26/22 08:00 BP 139/74 04/26/22 04:30 Pulse Ox 98 04/26/22 04:30 FiO2 Intake & Output 04/25/22 04/26/22 04/26/22 18:59 06:59 18:59 Intake Total 240 Output Total 618 Balance -378 Intake: Oral 240 Output: Drainage 18 Right Back 18 Urine 600 Other: Voiding Method Toilet Toilet Toilet # Voids 3 1 ABP, PAP, CO, CI - Last Documented Arterial Blood Pressure 158/59 - Exam Optifoam dressing present over incision. Incision CDI, healing well. Sensation is equal, symmetric, bilaterally intact throughout the upper and lower extremities. There is some tenderness to palpation of the lumbar spine over incision. Nontender to palpation throughout rest of exam. Patient has full range of motion bilateral extremities on exam. Patient does have some limited range of motion in bilateral lower extremities and hip flexion/extension due to pain. Full range of motion bilateral lower extremities and knee flexion extension and ankle dorsi/plantar flexion. Radial pulse intact, 2+, bilaterally. Refill under 3 seconds in digits upper extremities. Negative Homans bilaterally. - Labs CBC & Chem 7: 04/26/22 06:37 04/26/22 06:37 Labs: Abnormal Lab Results - Last 24 Hours (Table) 04/25/22 04/26/22 04/26/22 Range/Units 11:30 06:37 06:37 RBC 2.98 L 2.75 L (3.80-5.40) m/uL Hgb 8.6 L 7.8 L (11.4-16.0) gm/dL Hct 26.3 L 24.9 L (34.0-46.0) % MCHC 31.3 L (32.0-37.0) g/dL Absolute Nucleated RBC 0.02 H (0.00-0.00) X 10*3/uL Lymphocytes # 0.5 L 0.73 L (1.0-4.8) k/uL NRBC/100 WBC Diff 0.3 H (0.0-0.0) /100 WBCS Anion Gap 8.50 L (10.00-18.00) mmol/L Creatinine 0.5 L (0.6-1.5) mg/dL Glucose 154 H (70-110) mg/dL Calcium 8.0 L (8.7-10.3) mg/dL Assessment and Plan Assessment: 1. 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 Patient stable at bedside this morning. [place] well aligned. Incision CDI, healing well. Discharge home today with health services 2. Appreciate medical management 3. Pain management - norc; flexeril; tylenol; dilaudid only if necessary 4. DVT prophylaxis - mechanical 5. GI prophylaxis - senna; protonix 6. PT/OT - weightbearing as tolerated with walker 7. Encourage incentive spirometer use 8. Discharge planning - discharge home today with health services Time with Patient: Less than 30
--- NOTE | 2022-04-26 11:35 | P.DS ---
Providers Date of admission: 04/21/22 05:41 Expected date of discharge: 04/26/22 Attending physician: Bertin Javier DO Consults: 04/21/22 14:40 Consult Physician Routine Consulting Provider: Chandni Thomas Consult Reason/Comments: s/p revision [id number] decompr fusion Do you want consulting provider notified?: Yes 04/21/22 16:55 Consult Physician Routine Consulting Provider: Cherise Brito Consult Reason/Comments: ICU management Do you want consulting provider notified?: Already Contacted Primary care physician: Adrian Ghotraranjana [facility] Course: Date of admission: 04/21/2022 Date of discharge: 04/26/2022 Admission diagnosis: Adjacent segment disease L1-L2, 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 At this point patient has failed conservative treatment measures and has opted to proceed with a elective [id number] decompression fusion. Hospital course: Details of patient's surgery can be found in operative report. Patient tolerated the procedure well and was subsequently transported to orthopedic floor. Patient's orthopeidc and medical care was provided daily. Patient had daily laboratory tests performed for evaluation of overall blood counts. Patient had daily physical therapy to include strengthening range of motion as well as education with walker ambulation. Patient was noted to have a relatively uneventful postoperative course. Patient reported satisfactory pain control with oral pain medications by postoperative day 5. Patient showed satisfactory progress with physical therapy. Patient moved steadily through the program and had no difficulty meeting the goals by postoperative day 5. Given patient's otherwise satisfactory course and having met physical therapy goals, plan is to discharge patient home with health services on postoperative day 5. Discharge condition/disposition: Patient will be discharged home with health services in stable condition. Discharge medications: Instructions are given on resumption of patient's normal daily medications per primary care recommendation, in addition patient will be prescribed Yosemite; gabapentin; Flexeril; Duricef; senna; iron. 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 Please discuss prescription refills at your follow up appointment. Do not call the hospital for medication refills. Dressing: Leave your dressing in place for a total of 5 days post operatively. Then you may remove your dressing and leave open to air. Keep the area clean and if not able to keep area clean, then cover with sterile gauze and tape. Showering: You may shower 3 days after your procedure allowing soap and water to run over incision. Do not scrub. Do not soak. Blot dry. Follow up: Please confirm a follow up appointment with your surgeon 3 weeks post operatively. Please make an appointment to follow up with your PCP in 1-2 weeks after surgery for evaluation 3 phase, 3-week plan POST OP WEEKS 1-3 1. Lifting/carrying/pushing/pulling limited to less than 5 pounds. 2. Do not sit for longer than 15 minutes at one time. Get up and walk around. Prolonged sitting is NOT advised. If you lay down, see if you can tolerate laying down on you front (belly side) 3. Walk for periods of 15 minutes = 1 mile but no longer; do it multiple times times each day. 4. Ice your low back after activity. POST OP WEEKS 3-6 1. Lifting limited to less than 20 pounds. 2. Do not sit for longer than 30 minutes at a time. Frequently change positions. Use a sit-to stand workstation or take frequent breaks from sitting if you have returned to work. 3. Walk for 30 minutes each day. If possible, do these three or more times a day POST OP WEEKS 6+ At your 6-week appointment we will give you a physical therapy referral to focus on a core stabilization and strengthening program. You should also work on leg & buttock strengthening, hamstring & quadriceps stretching, and continue a low impact aerobic activity program such as swimming, walking, or riding a stationary bicycle. During the initial 6 weeks after your surgery, you are at the highest risk of re-injuring your spine. You should generally avoid BLTs (bending, lifting and twisting combination motions) and follow the above guidelines to reduce the chance of reinjury. You can anticipate post op appointments in our office at approximately 3 weeks and 6 weeks after your surgery. INCISION CARE: If your incision is not draining you do NOT need to cover it with a dressing. Keep your incision clean, dry and intact. In most cases, we apply skin glue, eneida or sutures to the incision at the time of surgery. This will be like a crust or have the appearance of a scab and will fall off in time on its own. The stitches or eneida need to be removed at 3 weeks post op appointment. You may begin to shower 3 days after surgery (this allows the glue to josue well). However, please avoid scrubbing the incision site or peeling off any of the skin glue. This will ensure optimal healing of your incision. Also, during this time avoid soaking the incision area in water - this includes swimming pools, hot tubs or baths. No ointments, lotions or oils on the incision until your surgeon allows. Leave eneida, sutures or glue in place. Neurological dysfunction that comes on suddenly can also be a sign of a stroke. Below some common symptoms of a stroke are listed: B - balance difficulty such as sudden onset walking or leaning to one side - NEW E - eye problem such as sudden double vision or trouble seeing on one side - NEW F - Facial weakness or numbness on one side - NEW A - Arm or leg weakness or numbness on one side - NEW S - Slurred speech or difficulty with word finding - NEW T - Time is BRAIN! Call 911 as soon as you recognize these symptoms Diet: Consume a regular diet rich in vegetables and lean protein such as chicken or fish. You should consume in a ratio of approximately 20% fats|40% carbohydrates|40%protein. Vegetables, sweet potatoes, brown rice or quinoa are examples of good carbohydrates. Chips, white bread, cookies and sweets/sugar are examples of bad carbohydrates. Limit your bad carbs, go wild with good carbs. "Life's Simple 7" Guidelines as per [place] [employer] These will help you reclaim your life after surgery and forgeman helper in your recovery, keeping in mind your restrictions. (1) Get Active. Physical activity can help people lose weight, control high blood pressure and cholesterol, feel emotionally better, and sleep better. (2) Control Cholesterol. Avoid a diet high in saturated fat, trans fat, & cholesterol. Limit whole milk & cream, ice cream, butter, egg yolks, processed meats (like sausage and hot dogs), and fatty meats. Choose healthy foods that are low in saturated fat, trans fat and cholesterol which include: Fruits and vegetables, fiber rich grain products (like whole grain pasta and brown rice), lean meat such as chicken, fish, nuts, seeds, and legumes. (3) Eat Better. Eat small portions. Shop at the grocery with a list and do not stray from it. Tips for a healthy diet include: Limit sodium intake to less than 1500mg daily, avoid prepackaged, processed, and fast foods, choose a diet rich in fruits, vegetables, and whole grain, high fiber foods, and limit saturated & cholesterol in your diet. (4) Manage Blood Pressure. If you have high blood pressure, you should have a cuff at home so that you can check your blood pressure regularly. Be sure you have a good cuff. An arm one is generally better than a wrist one. Bring the cuff to a doctor's appointment to validate that the measurements that your cuff are taking are accurate. Take your blood pressure twice daily when you are sitting down and relaxing. Record the numbers in a log and bring this log with you to your doctors' appointments. (5) Lose Weight if your BMI is above 25. A healthy BMI is between 19-25. To calculate Your BMI, you may use a Standard BMI Calculator on the NIH BMI website: <www.nhlbi.nih.gov/guidelines/obesity/BMI/bmicalc.htm>. Weigh oneself daily. If you are overweight, set a goal to lose weight. A pound a week loss if needed is a good target. (6) Reduce Blood Sugar. Limit foods and liquids with "added sugars." (Added sugars include sucrose, fructose, glucose, maltose, dextrose, high fructose corn syrup, corn syrup, concentrated fruit juice and honey). (7) Stop Smoking. If you smoke, quitting smoking is one of the best things that you can do for your health. Smoking increases your risk of heart attack, stroke, and peripheral vascular disease, which is a build-up of plaque in your arteries. Please discard all the cigarettes and lighters in your house. Have a plan for what you will do when you have the urge to smoke. Direct and second- hand smoke shortens your life as well as the lives of your family, friends and others around you. For your health and the health of those around you, please consider quitting! Proper Bending Body Mechanics: Maintain a wide stance with one foot slightly in front of the other. Keep your back straight. Bend utilizing the strength in your hips and knees. Do not bend at the waist. Maintain the lifted object at your waist-level close to your body. Avoid lifting weight that causes immediately pain or pain anywhere in the body afterwards. Smoking/Nicotine If there was ever one thing that you could do to increase your overall health, decrease your risk of cardiovascular problems by about 39% the second you make the choice, it is to STOP SMOKING. Your body's most instant gratification is the second you stop smoking. We have all heard the studies, read the articles but it is true, smoking is extremely bad for your overall health, and moreover it is detrimental to your bone health. Nicotine, IN ANY FORM, kills bone cells, prevents your body from healing fractures, and significantly prolongs healing after surgery. In spine surgery specifically, it increases your risk of not healing your bones to create a fusion and increases your risk of having a revision surgery due to this up to 60%. I know it is hard. I know it feels impossible. But there are ways. Take control of your life. We are here to help you through it. And when you are ready, ask us and we can direct you to help if you desire. Use the START Plan to Quit Smoking (please visit the Helpguide.org website listed below for more information): S = Set a quit date. Choose a date within the next 2 weeks, so you have enough time to prepare without losing your motivation to quit. If you mainly smoke at work, quit on the weekend, so you have a few days to adjust to the change. T = Tell family, friends, and co-workers that you plan to quit. Let your friends and family in on your plan to quit smoking and tell them you need their support and encouragement to stop. Look for a quit yanci who wants to stop smoking as well. You can help each other get through the rough times. A = Anticipate and plan for the challenges you'll face while quitting. Most people who begin smoking again do so within the first 3 months. You can help yourself make it through by preparing ahead for common challenges, such as nicotine withdrawal and cigarette cravings. R = Remove cigarettes and other tobacco products from your home, car, and work. Throw away all your cigarettes (no emergency pack!), lighters, ashtrays, and matches. Wash your clothes and freshen up anything that smells like smoke. Shampoo your car, clean your drapes and carpet, and steam your furniture. T = Talk to your doctor about getting help to quit. Your doctor can prescribe medication to help with withdrawal and suggest other alternatives. If you can't see a doctor, you can get many products over the counter at your local pharmacy or grocery store, including the nicotine patch, nicotine lozenges, and nicotine gum. Resources for Quitting Smoking: <https://www.[place].gov/documents/[facility]/Quit_Tobacco_Resources_for _patients_313480_7.pdf> Supplementation: Take recommended dosages of Vitamin D and Calcium to help fortify your bones and help them to heal. See your health maintenance packet for dosages and recommended levels. DVT/VTE prophylaxis: You will be given compression stockings from the hospital. Wear these daily for the first two weeks after surgery. You may take them off at night. You may be prescribed a medication to help thin your blood. Take this as directed. If you are not prescribed this medication, early and frequent ambulation has been shown to be the best prophylaxis to deep vein thrombosis and sequelae related to this event. 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; neurogenic claudication; lower extremity weakness Procedures: - [id number] decompression and fusion Patient Condition at Discharge: Good Plan - Discharge Summary Discharge Rx Participant: Yes New Discharge Prescriptions: New Gabapentin 300 mg PO BID #20 cap Cyclobenzaprine [Flexeril] 5 mg PO TID #21 tablet Sennosides/Docusate Sodium [Senna-S 8.6-50 mg Tablet] 1 each PO DAILY #20 tab Ferrous Sulfate [Iron (65 MG Elemental)] 325 mg PO BID-W/MEALS #60 tab HYDROcodone/APAP 7.5-325MG [Yosemite 7.5] 1 - 2 each PO Q6HR PRN #32 tab PRN Reason: Pain cefaDROXiL [Duricef] 500 mg PO Q12HR 5 Days #10 cap No Action Omeprazole Magnesium [PriLOSEC OTC] 20 mg PO DAILY PRN PRN Reason: Heartburn Naproxen Sodium [Naproxen Sodium ER] 500 mg PO BID PRN PRN Reason: Pain traMADol HCL 50 mg PO BID PRN PRN Reason: Pain Cyclobenzaprine [Flexeril] 5 mg PO TID HYDROcodone/APAP 5-325MG [Yosemite 5-325] 5 PO PRN PRN Reason: Pain Discharge Medication List Cyclobenzaprine [Flexeril] 5 mg PO TID 03/17/22 [History] Naproxen Sodium [Naproxen Sodium ER] 500 mg PO BID PRN 03/17/22 [History] traMADol HCL 50 mg PO BID PRN 03/17/22 [History] Omeprazole Magnesium [PriLOSEC OTC] 20 mg PO DAILY PRN 04/17/22 [History] HYDROcodone/APAP 5-325MG [Yosemite 5-325] 5 PO PRN 04/21/22 [History] Cyclobenzaprine [Flexeril] 5 mg PO TID #21 tablet 04/26/22 [Rx] Ferrous Sulfate [Iron (65 MG Elemental)] 325 mg PO BID-W/MEALS #60 tab 04/26/22 [Rx] Gabapentin 300 mg PO BID #20 cap 04/26/22 [Rx] HYDROcodone/APAP 7.5-325MG [Yosemite 7.5] 1 - 2 each PO Q6HR PRN #32 tab 04/26/22 [Rx] Sennosides/Docusate Sodium [Senna-S 8.6-50 mg Tablet] 1 each PO DAILY #20 tab 04/26/22 [Rx] cefaDROXiL [Duricef] 500 mg PO Q12HR 5 Days #10 cap 04/26/22 [Rx] Follow up Appointment(s)/Referral(s): Bertin Javier DO [Doctor of Osteopathic Medicine] - 2 Weeks Patient Instructions/Handouts: Posterior Lumbar Interbody Fusion (DC), Lumbar Spinal Fusion (DC), Lumbar Spinal Fusion (GEN) Activity/Diet/Wound Care/Special Instructions: Spine Discharge and Recovery Instructions Dressing may be removed on 04/28/2022. 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 Please discuss prescription refills at your follow up appointment. Do not call the hospital for medication refills. Dressing: Leave your dressing in place for a total of 5 days post operatively. Then you may remove your dressing and leave open to air. Keep the area clean and if not able to keep area clean, then cover with sterile gauze and tape. Showering: You may shower 3 days after your procedure allowing soap and water to run over i ncision. Do not scrub. Do not soak. Blot dry. Follow up: Please confirm a follow up appointment with your surgeon 3 weeks post operatively. Please make an appointment to follow up with your PCP in 1-2 weeks after surgery for evaluation 3 phase, 3-week plan POST OP WEEKS 1-3 1. Lifting/carrying/pushing/pulling limited to less than 5 pounds. 2. Do not sit for longer than 15 minutes at one time. Get up and walk around. Prolonged sitting is NOT advised. If you lay down, see if you can tolerate laying down on you front (belly side) 3. Walk for periods of 15 minutes = 1 mile but no longer; do it multiple times times each day. 4. Ice your low back after activity. POST OP WEEKS 3-6 1. Lifting limited to less than 20 pounds. 2. Do not sit for longer than 30 minutes at a time. Frequently change positions. Use a sit-to stand workstation or take frequent breaks from sitting if you have returned to work. 3. Walk for 30 minutes each day. If possible, do these three or more times a day POST OP WEEKS 6+ At your 6-week appointment we will give you a physical therapy referral to focus on a core stabilization and strengthening program. You should also work on leg & buttock strengthening, hamstring & quadriceps stretching, and continue a low impact aerobic activity program such as swimming, walking, or riding a stationary bicycle. During the initial 6 weeks after your surgery, you are at the highest risk of re-injuring your spine. You should generally avoid BLTs (bending, lifting and twisting combination motions) and follow the above guidelines to reduce the chance of reinjury. You can anticipate post op appointments in our office at approximately 3 weeks and 6 weeks after your surgery. INCISION CARE: If your incision is not draining you do NOT need to cover it with a dressing. Keep your incision clean, dry and intact. In most cases, we apply skin glue, eneida or sutures to the incision at the time of surgery. This will be like a crust or have the appearance of a scab and will fall off in time on its own. The stitches or eneida need to be removed at 3 weeks post op appointment. You may begin to shower 3 days after surgery (this allows the glue to josue well). However, please avoid scrubbing the incision site or peeling off any of the skin glue. This will ensure optimal healing of your incision. Also, during this time avoid soaking the incision area in water - this includes swimming pools, hot tubs or baths. No ointments, lotions or oils on the incision until your surgeon allows. Leave eneida, sutures or glue in place. Neurological dysfunction that comes on suddenly can also be a sign of a stroke. Below some common symptoms of a stroke are listed: B - balance difficulty such as sudden onset walking or leaning to one side - NEW E - eye problem such as sudden double vision or trouble seeing on one side - NEW F - Facial weakness or numbness on one side - NEW A - Arm or leg weakness or numbness on one side - NEW S - Slurred speech or difficulty with word finding - NEW T - Time is BRAIN! Call 911 as soon as you recognize these symptoms Diet: Consume a regular diet rich in vegetables and lean protein such as chicken or fish. You should consume in a ratio of approximately 20% fats|40% carbohydrates|40%protein. Vegetables, sweet potatoes, brown rice or quinoa are examples of good carbohydrates. Chips, white bread, cookies and sweets/sugar are examples of bad carbohydrates. Limit your bad carbs, go wild with good carbs. "Life's Simple 7" Guidelines as per [place] [employer] These will help you reclaim your life after surgery and forgeman helper in your recovery, keeping in mind your restrictions. (1) Get Active. Physical activity can help people lose weight, control high blood pressure and cholesterol, feel emotionally better, and sleep better. (2) Control Cholesterol. Avoid a diet high in saturated fat, trans fat, & cholesterol. Limit whole milk & cream, ice cream, butter, egg yolks, processed meats (like sausage and hot dogs), and fatty meats. Choose healthy foods that are low in saturated fat, trans fat and cholesterol which include: Fruits and vegetables, fiber rich grain products (like whole grain pasta and brown rice), lean meat such as chicken, fish, nuts, seeds, and legumes. (3) Eat Better. Eat small portions. Shop at the grocery with a list and do not stray from it. Tips for a healthy diet include: Limit sodium intake to less than 1500mg daily, avoid prepackaged, processed, and fast foods, choose a diet rich in fruits, vegetables, and whole grain, high fiber foods, and limit saturated & cholesterol in your diet. (4) Manage Blood Pressure. If you have high blood pressure, you should have a cuff at home so that you can check your blood pressure regularly. Be sure you have a good cuff. An arm one is generally better than a wrist one. Bring the cuff to a doctor's appointment to validate that the measurements that your cuff are taking are accurate. Take your blood pressure twice daily when you are sitting down and relaxing. Record the numbers in a log and bring this log with you to your doctors' appointments. (5) Lose Weight if your BMI is above 25. A healthy BMI is between 19-25. To calculate Your BMI, you may use a Standard BMI Calculator on the NIH BMI website: <www.nhlbi.nih.gov/guidelines/obesity/BMI/bmicalc.htm>. Weigh oneself daily. If you are overweight, set a goal to lose weight. A pound a week loss if needed is a good target. (6) Reduce Blood Sugar. Limit foods and liquids with "added sugars." (Added sugars include sucrose, fructose, glucose, maltose, dextrose, high fructose corn syrup, corn syrup, concentrated fruit juice and honey). (7) Stop Smoking. If you smoke, quitting smoking is one of the best things that you can do for your health. Smoking increases your risk of heart attack, stroke, and peripheral vascular disease, which is a build-up of plaque in your arteries. Please discard all the cigarettes and lighters in your house. Have a plan for what you will do when you have the urge to smoke. Direct and second- hand smoke shortens your life as well as the lives of your family, friends and others around you. For your health and the health of those around you, please consider quitting! Proper Bending Body Mechanics: Maintain a wide stance with one foot slightly in front of the other. Keep your back straight. Bend utilizing the strength in your hips and knees. Do not bend at the waist. Maintain the lifted object at your waist-level close to your body. Avoid lifting weight that causes immediately pain or pain anywhere in the body afterwards. Smoking/Nicotine If there was ever one thing that you could do to increase your overall health, decrease your risk of cardiovascular problems by about 39% the second you make the choice, it is to STOP SMOKING. Your body's most instant gratification is the second you stop smoking. We have all heard the studies, read the articles but it is true, smoking is extremely bad for your overall health, and moreover it is detrimental to your bone health. Nicotine, IN ANY FORM, kills bone cells, prevents your body from healing fractures, and significantly prolongs healing after surgery. In spine surgery specifically, it increases your risk of not healing your bones to create a fusion and increases your risk of having a revision surgery due to this up to 60%. I know it is hard. I know it feels impossible. But there are ways. Take control of your life. We are here to help you through it. And when you are ready, ask us and we can direct you to help if you desire. Use the START Plan to Quit Smoking (please visit the Helpguide.org website listed below for more information): S = Set a quit date. Choose a date within the next 2 weeks, so you have enough time to prepare without losing your motivation to quit. If you mainly smoke at work, quit on the weekend, so you have a few days to adjust to the change. T = Tell family, friends, and co-workers that you plan to quit. Let your friends and family in on your plan to quit smoking and tell them you need their support and encouragement to stop. Look for a quit yanci who wants to stop smoking as well. You can help each other get through the rough times. A = Anticipate and plan for the challenges you'll face while quitting. Most people who begin smoking again do so within the first 3 months. You can help yourself make it through by preparing ahead for common challenges, such as nicotine withdrawal and cigarette cravings. R = Remove cigarettes and other tobacco products from your home, car, and work. Throw away all your cigarettes (no emergency pack!), lighters, ashtrays, and matches. Wash your clothes and freshen up anything that smells like smoke. Shampoo your car, clean your drapes and carpet, and steam your furniture. T = Talk to your doctor about getting help to quit. Your doctor can prescribe medication to help with withdrawal and suggest other alternatives. If you can't see a doctor, you can get many products over the counter at your local pharmacy or grocery store, including the nicotine patch, nicotine lozenges, and nicotine gum. Resources for Quitting Smoking: <https://www.[place].gov/documents/[facility]/Quit_Tobacco_Resources_for_patients_313 480_7.pdf> Supplementation: Take recommended dosages of Vitamin D and Calcium to help fortify your bones and help them to heal. See your health maintenance packet for dosages and recommended levels. DVT/VTE prophylaxis: You will be given compression stockings from the hospital. Wear these daily for the first two weeks after surgery. You may take them off at night. You may be prescribed a medication to help thin your blood. Take this as directed. If you are not prescribed this medication, early and frequent ambulation has been shown to be the best prophylaxis to deep vein thrombosis and sequelae related to this event. Discharge Disposition: HOME WITH HOME HEALTH SERVICES
[2022-04-26 12:08] VITALS: BP 112/76; PULSE 93; RESP 17; TEMP 98.2
== END 2022-04-26 12:50 | disposition home or self-care (01) | DRG 454 ==
LOC: 2ORMAIN 05:41 → 2SICU 16:20 → 5NMEDONC 04-22 21:45
PROVIDERS: ADMIT Orthopaedic Surgery; ATTEND Orthopaedic Surgery
PROC: 00NX0ZZ Release Thoracic Spinal Cord, Open Approach (ICD-10-PCS; principal; 2022-04-21 08:45)
PROC: 8E0WXBF Computer Assisted Procedure of Trunk Region, With Fluoroscopy (ICD-10-PCS; principal; 2022-04-21 08:45)
PROC: 0PH404Z Insertion of Internal Fixation Device into Thoracic Vertebra, Open Approach (ICD-10-PCS; principal; 2022-04-21 08:45)
PROC: 0SG1071 Fusion of 2 or more Lumbar Vertebral Joints with Autologous Tissue Substitute, Posterior Approach, Posterior Column, Open Approach (ICD-10-PCS; principal; 2022-04-21 08:45)
PROC: 0QP004Z Removal of Internal Fixation Device from Lumbar Vertebra, Open Approach (ICD-10-PCS; principal; 2022-04-21 08:45)
PROC: 0SG30AJ Fusion of Lumbosacral Joint with Interbody Fusion Device, Posterior Approach, Anterior Column, Open Approach (ICD-10-PCS; principal; 2022-04-21 08:45)
PROC: 4A1004G Monitoring of Central Nervous Electrical Activity, Intraoperative, Open Approach (ICD-10-PCS; principal; 2022-04-21 08:45)
DX: M48.062 Spinal stenosis, lumbar region with neurogenic claudication (principal); D62 Acute posthemorrhagic anemia; M48.07 Spinal stenosis, lumbosacral region; Z71.6 Tobacco abuse counseling; F17.210 Nicotine dependence, cigarettes, uncomplicated; J45.20 Mild intermittent asthma, uncomplicated; E66.9 Obesity, unspecified; Z68.33 Body mass index [BMI] 33.0-33.9, adult; K21.9 Gastro-esophageal reflux disease without esophagitis; K59.00 Constipation, unspecified; M40.209 Unspecified kyphosis, site unspecified; M47.819 Spondylosis without myelopathy or radiculopathy, site unspecified; Z68.39 Body mass index [BMI] 39.0-39.9, adult; Z96.652 Presence of left artificial knee joint; Z86.19 Personal history of other infectious and parasitic diseases; Z71.3 Dietary counseling and surveillance
CPT/HCPCS: 72100; 72128; 72131; 80048; 82728; 83540; 83550; 83735; 84100; 85025; 85027; 86850; 86900; 86901

== ENCOUNTER → 2023-03-03 | Outpatient (CLI) | payer OTHER | END | disposition home or self-care (01) | LOC: LABPAT 14:06 | PROVIDERS: ATTEND Orthopaedic Surgery | DX: Z01.812 Encounter for preprocedural laboratory examination (principal); Z22.322 Carrier or suspected carrier of Methicillin resistant Staphylococcus aureus; M17.11 Unilateral primary osteoarthritis, right knee | CPT/HCPCS: 36415; 87070 ==

== ENCOUNTER → 2023-12-09 | Outpatient (CLI) | payer OTHER ==
--- NOTE | 2023-12-09 22:34 | XR ---
EXAMINATION TYPE: XR thoracic spine 2V DATE OF EXAM: 12/09/2023 COMPARISON: None HISTORY: Fusion TECHNIQUE: 2 view thoracic spine FINDINGS: Fixation rods and pedicle screws are present to the mid and lower thoracic spine and upper lumbar spine. Some mild side bending towards the left is evident. The lateral projection there is kayleigh e exaggeration of thoracic kyphosis. Mild degenerative disc changes present through the postsurgical areas. Upper thoracic spine appears normal. IMPRESSION: 1. Postsurgical changes. No suspicious acute change is evident
== END | disposition home or self-care (01) ==
LOC: RADXRMAIN 10:26
PROVIDERS: ATTEND Orthopaedic Surgery
DX: M43.24 Fusion of spine, thoracic region (principal); Z98.890 Other specified postprocedural states
CPT/HCPCS: 72070